=== PATIENT | female | born 1940 | race Caucasian/White ===

== ENCOUNTER 2019-01-19 09:25 | Emergency (ER) | payer MEDICARE ==
[2019-01-19] MEDS ORDERED: ISOVUE-370 76%-LOCM 1 ML ONE (10:09)
[2019-01-19 10:16] LABS: #Eosinphils 0.1 thou/uL (0.0-0.7); #Lymphocytes 0.9 thou/uL (1.20-3.40); #Monocytes 0.5 thou/uL (0.11-0.59); #Neutrophils 4.4 thou/uL (1.40-6.50); %Basophils 0.6 % (0.0-1.0); %Eosinophils 0.9 % (0.0-10.0); %Lymphocytes 15.9 % (21.0-51.0); %Monocytes 8.1 % (0.0-10.0); %Neutrophils 74.5 % (42.0-75.0); Hemoglobin 9.7 g/dL (12.0-16.0); Mean Corpuscular HGB CONC 30.6 g/dL (32.0-36.0); Mean Corpuscular Hemoglobin 20.6 pg (27.0-31.0); Mean Corpuscular Volume 67.3 fL (78.0-98.0); Mean Platelet Volume 8.4 fL (7.4-10.4); Platelet Count 440 thou/uL (130-400); RBC Distribution Width 17.3 % (11.5-14.5); Red Blood Cell (RBC) Count 4.72 mill/uL (4.20-5.40); White Blood Cell (WBC) Count 5.9 thou/uL (4.8-10.8)
[2019-01-19 10:42] LABS: ALT (SGPT) 20 U/L (8-55); AST (SGOT) 31 U/L (5-34); Albumin 3.8 g/dL (3.4-4.8); Alkaline Phosphatase 77 U/L (40-150); Anion Gap 12 mmol/L (10-20); BUN (Urea Nitrogen) 12 mg/dL (9.8-20.1); Bilirubin, Total 0.3 mg/dL (0.2-1.2); Calc. Creatinine Clearance 0 mL/min (70-130); Calcium 9.3 mg/dL (7.8-10.44); Carbon Dioxide 25 mmol/L (23-31); Chloride 103 mmol/L (98-107); Estimated GFR-MDRD Greater than 90; Glucose 98 mg/dL (83-110); Lipase 17 U/L (8-78); Potassium 4.3 mmol/L (3.5-5.1); Protein, Total 6.8 g/dL (6.0-8.3); Sodium 136 mmol/L (136-145)
[2019-01-19 10:43] LABS: Anisocytosis SLIGHT = 6-15 cells (100X) (0-5/hpf); Hypochromia SLIGHT = 6-15 cells (100X) (0-5/hpf); MDiff Complete? YES; Microcytosis SLIGHT = 6-15 cells (100X) (0-5/hpf); Platelet Morphology Comment Appears Increased
[2019-01-19 11:21] LABS: Bilirubin Negative (Negative); Blood, Urine Negative (Negative); Glucose, Urine (Dipstick) Negative (Negative); Leukocyte Negative (Negative); Nitrite Negative (Negative); Protein, Urine (Dipstick) Negative (Neg-Trace); Urobilinogen 0.2 mg/dL (Less than 2)
[2019-01-19 11:24] LABS: Clarity Clear (Clear); RBC/HPF None Seen HPF (0-3); Squamous Epithelial 0-3 HPF (0-3); WBC/HPF 0-3 HPF (0-3)
[2019-01-19 11:30] LABS: Bacteria/HPF None Seen HPF (None Seen)
--- NOTE | 2019-01-19 12:42 | ULT ---
GALLBLADDER ULTRASOUND: 01/19/19 HISTORY: Right upper quadrant pain. COMPARISON: None. TECHNIQUE: Utilizing a multihertz transducer, sonographic imaging of the right upper quadrant is performed in a longitudinal transverse plane. The head of the pancreas has a normal echotexture. The remainder of the pancreas is obscured by bowel gas. There is a right sided pleural effusion. In the hepatic dome, there is a 3.8 x 4.7 x 4.4 cm mixed echotexture mass which may represent a compl ex cystic lesion given areas of echogenicity along with posterior acoustic enhancement. Better interr ogation with CT is recommended. There may be a second complex cystic or solid lesion in the liver, di fficult to appreciate. There appears to be a cyst measuring 2.4 x 2.4 x 2.8 cm in the right hepatic l obe. Right kidney has a normal cortical echotexture. No hydronephrosis. Right kidney measures 6.0 x 7.3 x 11.0 cm. Gallbladder is contacted and cannot be further assessed. Questionable gallbladder wall polyps. Positi ve nonshadowing adherent stones cannot be excluded. Negative Swann's sign is reported. Suboptimal evaluation of the common bile duct. Main portal vein is patent. IMPRESSION: Multiple hepatic masses, worrisome for malignancy until proven otherwise. Further evaluation with [facility] mass protocol CT is recommended. Results of the study discussed with Dr. Bell, 01/19/19 at 12:24 p.m. Code CR POS: OFF
--- NOTE | 2019-01-19 17:48 | CT ---
CT ABDOMEN WITH AND WITHOUT IV CONTRAST CT PELVIS WITH IV CONTRAST 01/19/19 HISTORY: Abnormal right upper quadrant ultrasound examination demonstrating multiple hepatic masses, worrisome for malignancy. COMPARISON: Right upper quadrant ultrasound 01/19/19. FINDINGS: There is incomplete visualization of a moderate sized right pleural effusion with consolidation of th e right lung base which probably attributable to atelectasis or pneumonitis. There are a few small pl eural based nodular densities along the anterolateral right chest. There is enhancing ill-defined soft tissue density seen along the capsule of the liver and in the reg ion of the cardiophrenic angle which does result in mass effect on portions of the liver capsule and are suggestive of peritoneal carcinomatosis. Adjacent fluid is present. There are at least three cyst ic appearing masses within the right upper quadrant with small enhancing peripheral nodules which are also worrisome for metastatic disease, largest measuring 3.9 cm. These lesions also are likely along the capsule with resultant mass effect on the liver although could potentially be subcapsular. There are lobulated areas of enhancement within the anterior peritoneum of the lower abdomen/upper pe lvis as well as in the anterolateral aspect of the lower left pelvis and in the region of the cul-de- sac. Again findings are most suggestive of peritoneal carcinomatosis. Subcentimeter too small to characterize hypodense lesions are seen in the superior pole and mid port ion left kidney. The spleen, pancreas, bilateral adrenal glands, and right kidney as well as urinary bladder demonstra te a normal CT appearance. The uterus is not visualized probably related to prior hysterectomy. Dense vascular calcifications are seen in the abdominal aorta and involving the iliac arteries. There is question of mild gastric wall thickening in the region of the pylorus, this is likely attrib utable to incomplete distention. The opacified small bowel has a normal appearance. A moderate amount of retained fecal material is se en throughout the colon. No enlarged lymph nodes are seen. IMPRESSION: 1. Peritoneal carcinomatosis much more extensive along the capsule of the liver and near the do me of the liver adjacent to the cardiophrenic angle. Additional cystic metastatic lesions are seen wh ich are thought to be along the liver capsule with resultant mass effect on the liver versus subcapsu lar in origin. Exact origin of peritoneal carcinomatosis is difficult to discern. However, there is i rregular lobulated soft tissue density seen adjacent to the vaginal cuff in the left adnexal region w hich may be secondary to an adnexal lesion. 2. Moderate sized right pleural effusion with consolidation at the right lung base, some of whi ch probably is related to atelectasis. However, pneumonitis is also a possibility. 3. Pleural based nodular densities right lung base. Pleural based metastatic deposits cannot be entirely excluded. 4. Hysterectomy. 5. Too small to characterize hypodense lesions left kidney. 6. Degenerative change in the spine. No lytic or sclerotic osseous lesions are appreciated. Ther e is fusion of the left lateral mass of L5 with S1. 7. Above findings discussed with Dr. Bell in the Emergency Department on 01/19/19 at 1453 hours. POS: [facility]
== END 2019-01-19 16:40 | disposition home or self-care (01) ==
LOC: ERS 09:25
DX: C78.6 Secondary malignant neoplasm of retroperitoneum and peritoneum (principal); J90 Pleural effusion, not elsewhere classified; E78.5 Hyperlipidemia, unspecified; Z87.891 Personal history of nicotine dependence; Z79.899 Other long term (current) drug therapy
CPT/HCPCS: 36415; 72193; 74170; 76705; 80053; 81003; 83690; 85025; Q9966

== ENCOUNTER 2019-02-05 11:26 | Outpatient (CLI) | payer MEDICARE ==
--- NOTE | 2019-02-05 12:59 | RAD ---
XR Chest Pa Lat STANDARD HISTORY: Preoperative evaluation COMPARISON: None FINDINGS: There is a large right pleural effusion with mediastinal shift to the left. The heart size is normal. The aorta is tortuous. The left lung is clear. There are degenerative changes in the spine. IMPRESSION: Large right pleural effusion.
--- NOTE | 2019-02-09 22:41 | EKG ---
Test Reason : Blood Pressure : / mmHG Vent. Rate : 085 BPM Atrial Rate : 085 BPM P-R Int : 150 ms QRS Dur : 082 ms QT Int : 434 ms P-R-T Axes : 093 081 096 degrees QTc Int : 516 ms Normal sinus rhythm Nonspecific ST and T wave abnormality Prolonged QT Abnormal ECG No previous ECGs available Confirmed by Dolores COSBY ([id number]) on 02/09/2019 10:41:31 PM Referred By: OLAF Confirmed By:Dolores COSBY
== END 2019-02-05 11:27 | disposition home or self-care (01) ==
LOC: LABBT 11:26
PROVIDERS: ATTEND Specialist
DX: Z01.818 Encounter for other preprocedural examination (principal); C80.1 Malignant (primary) neoplasm, unspecified; C78.6 Secondary malignant neoplasm of retroperitoneum and peritoneum; J90 Pleural effusion, not elsewhere classified
CPT/HCPCS: 32554; 71045; 71046; 82945; 83605; 83615; 83880; 84157; 84484; 85060; 85610; 85730; 88112; 88305; 89051; 93005; 93010; J2001

== ENCOUNTER 2019-02-05 18:59 | Emergency (ER) | payer MEDICARE ==
[2019-02-05] MEDS ORDERED: Lidocaine 1% w/Epinephrine 1:100K 20 ML VIAL ONE (19:31)
[2019-02-05 19:50] LABS: #Lymphocytes 0.8 thou/uL (1.20-3.40); #Monocytes 0.7 thou/uL (0.11-0.59); #Neutrophils 8.5 thou/uL (1.40-6.50); %Basophils 0.4 % (0.0-1.0); %Eosinophils 0.1 % (0.0-10.0); %Lymphocytes 7.8 % (21.0-51.0); %Neutrophils 84.7 % (42.0-75.0); Hemoglobin 11.2 g/dL (12.0-16.0); Mean Corpuscular HGB CONC 30.7 g/dL (32.0-36.0); Mean Corpuscular Hemoglobin 20.3 pg (27.0-31.0); Mean Platelet Volume 8.2 fL (7.4-10.4); Platelet Count 677 thou/uL (130-400); RBC Distribution Width 18.4 % (11.5-14.5); Red Blood Cell (RBC) Count 5.53 mill/uL (4.20-5.40); White Blood Cell (WBC) Count 10.1 thou/uL (4.8-10.8)
[2019-02-05 19:57] LABS: INR-International Normal Ratio 1.1; PTT 29.2 SEC (22.9-36.1); Prothrombin Time 13.8 SEC (12.0-14.7)
--- NOTE | 2019-02-05 20:15 | RAD ---
RADIOGRAPH CHEST 1 VIEW: DATE: 02/05/2019 TIME: 8:00 PM HISTORY: 78-year-old female status post thoracentesis for right pleural effusion. COMPARISON: 02/05/2019 12:53 PM FINDINGS: There continues to be total opacification of the right hemithoracic cavity. There continues to be rig ht to left midline shift of the trachea, mediastinum, and heart, but this appears to have slightly improved. No pneumothorax is visible. The left lung is relatively clear. There is hyperinflation of t he left lung. IMPRESSION: 1) no interval change in the total opacification of the right hemithoracic cavity due to large right pleural effusion. 2) no pneumothorax. 3) slight interval apparent improvement in the shift of midline structures to the left.
[2019-02-05] MEDS ORDERED: Ibuprofen 200 MG TAB ONE (21:46)
[2019-02-05] MEDS ORDERED: HYDROcodone/Acetaminophen 5/325 mg Tablet ONE (21:46)
[2019-02-05 23:14] LABS: BF Color Yellow; Body Fluid Source Thoracentesis Fluid; Clarity Hazy (Clear); Tube # EDTA
[2019-02-05 23:16] LABS: WBC/NonHematic-Auto 287 /cumm
[2019-02-05 23:17] LABS: BF RBC Count - Manual 2428 /cumm
[2019-02-06 00:19] LABS: BF Segmented Neutrophils 14 %; Cell Count Non Hematic 30 %; Lymphocytes 56 %
--- NOTE | 2019-02-08 08:20 | CON ---
DATE OF CONSULTATION: 02/05/2019 SERVICE: Pulmonary Medicine. REASON FOR CONSULT: Pleural effusion. HISTORY OF PRESENT ILLNESS: The patient is a 78-year-old white female with past medical history significant for suspected ovarian cancer. She has carcinomatosis of the belly. Apparently, she had increasing pleural effusion and one week ago, she underwent a thoracentesis. At that point, 1.3 L were removed. She had some shortness of breath at that time, that got better when she had the fluid off. Either way, she had progressive increasing shortness of breath over the past week. She presented to the Emergency Department with acute hypoxic respiratory failure secondary to large pleural effusion. Chest x-ray showed a very large effusion under tension. There was shift to mediastinum in the contralateral direction. She denies any fevers or chills. She has not been sick otherwise. She has had a progressive increasing shortness of breath. She has yet to start chemotherapy. This is going to be initiated probably next week. PAST MEDICAL HISTORY: 1. 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 2. Dyslipidemia. 3. Malignant effusion. 4. Carcinomatosis of the peritoneal cavity. PAST SURGICAL HISTORY: 1. Right leg vein procedure. 2. Hysterectomy. 3. Thoracentesis x2. FAMILY HISTORY: Noncontributory. SOCIAL HISTORY: Negative for alcohol, tobacco, or illicit drug use currently. ALLERGIES: SULFA. MEDICATIONS: List of her home medications includes; 1. Simvastatin and levothyroxine. 2. She is also on multiple pain medications. REVIEW OF SYSTEMS: General, head, ears, eyes, nose, throat, cardiovascular, respiratory, GI, , musculoskeletal, neurologic, and skin are negative except as mentioned in the HPI. PHYSICAL EXAMINATION: VITAL SIGNS: Afebrile, pulse 86, respirations 14, and saturation 95% on room air after her thoracentesis. HEENT: Normocephalic and atraumatic. Sclerae white. Conjunctivae pink. Oral mucosa is moist without lesions. LUNGS: There are absent breath sounds on the right. There is good air entry on the left. No prolonged expiratory phase or wheezing is appreciated. HEART: Normal rate. Regular. ABDOMEN: Soft, nontender, and nondistended. Bowel sounds are positive. MUSCULOSKELETAL: No cyanosis or clubbing. No pitting in the bilateral lower extremities. NEUROLOGIC: Grossly nonfocal. LABORATORY DATA: WBC 10.1, hemoglobin 11.2, and platelets 677,000. INR 1.1. Basic metabolic profile and liver function studies are otherwise unremarkable. BNP 129 and troponin is below the assay limit of 0.01. Lactate 2.1. Body fluid analysis shows an LDH of 477, glucose 85, total protein 3.8, and lymphocyte count 56%. Pathology currently pending. IMAGING: Chest x-ray demonstrates efrain-opacification of the right lung. The effusion is under tension with a shift of the mediastinum to the contralateral side. Otherwise, there is no acute cardiopulmonary abnormality identified. ASSESSMENT: 1. Acute hypoxic respiratory failure. 2. Malignant pleural effusion. 3. Widely metastatic carcinoma, ovarian, suspected. DISCUSSION AND PLAN: I talked to Dr. Colorado about possibly doing a PleurX catheter tomorrow morning. Unfortunately, we did not have enough PleurX kits left. It would be Friday or Friday at the earliest before she could recover one of these. She only had 500 mL pulled off in the Emergency Department. With a small amount of fluid that was pulled off, she will have a rapid reaccumulation and will be unlikely to make it through the . I gave the option of putting her in the hospital, and waiting until Friday to get her PleurX versus going home after a larger tap. She would prefer to go home after a larger tap. We did a full volume thoracentesis. Afterwards, she was on room air and her saturations were quite good. We have her an appointment with Dr. Everette Colorado, in the outpatient setting early next week. Hopefully, she will be able to get a PleurX catheter in soon. Since we do not have any cytology here, I will send off a sample to verify that she does in fact have a malignant effusion. The LDH is elevated. It is a lymphocyte predominant fluid , so my suspicion is that we will be dealing with a malignant effusion. 70 minutes have been devoted to this patient in various activities. I personally reviewed all imaging studies and laboratory data noted within this document. For fifty percent of this time, I was interacting with the patient at the bedside or coordinating care with the care team. For the remainder of the time I was immediately available to the patient in the hospital unit. Job ID: [id number] MTDD
--- NOTE | 2019-02-08 10:59 | OP ---
DATE OF PROCEDURE: 02/05/2019 SERVICE: Pulmonary Medicine. PROCEDURE PERFORMED: Right-sided pleural drainage with catheter insertion under ultrasound guidance. CONSENT: Risks and benefits of the procedure were discussed with the patient at bedside. All questions were answered and alternative options explained. STAFF PHYSICIAN: Milton Roger MD MEDICATIONS USED: Lidocaine 1% without epinephrine, 8 mL. PREOPERATIVE DIAGNOSES: 1. Malignant pleural effusion. 2. Acute hypoxic respiratory failure. POSTPROCEDURE DIAGNOSES: 1. Malignant pleural effusion. 2. Acute hypoxic respiratory failure. DESCRIPTION OF PROCEDURE: Time-out was performed by the procedure team and patient. The patient was positively identified using name and date of . The procedure site was marked. Vital sign monitoring was accomplished by noninvasive hemodynamic monitoring, pulse oximetry, and telemetry. In the seated position, the right posterior hemothorax was examined using ultrasound probe. The diaphragm and pleural fluid were easily identified. The skin was prepped and draped in a sterile fashion and anesthetized with 1% lidocaine without epinephrine. A finder needle was inserted in the pleural space with return of minimally cloudy yellow fluid. Pleural drainage catheter was inserted in the same location, a total quantity of 1600 mL was withdrawn by syringe pump technique. A sample was sent for analysis. Evacuation of fluid was terminated because I arrived at -21 cm of water of pleural fluid pressure. The intact catheter was withdrawn on exhalation and a sterile dressing was applied. The patient had stable vitals throughout the entire procedure. Postprocedure ultrasound demonstrated at least a liter and a half still in the chest. ESTIMATED BLOOD LOSS: 1 mL. COMPLICATIONS: None. Job ID: [id number]
== END 2019-02-05 22:00 | disposition home or self-care (01) ==
LOC: ERS 18:59
DX: C80.1 Malignant (primary) neoplasm, unspecified (principal); J91.0 Malignant pleural effusion
CPT/HCPCS: 71045; 82945; 83605; 83615; 83880; 84157; 84484; 85060; 85610; 85730; 89051; 93005; J2001

== ENCOUNTER 2019-02-25 13:49 | Outpatient (CLI) | payer MEDICARE ==
--- NOTE | 2019-02-25 14:19 | RAD ---
TWO VIEW CHEST: INDICATION: Pleural fluid. COMPARISON: 02/15/2019. FINDINGS: There is a large right effusion with a right thoracostomy tube present. Left chest port is in place. No consolidation of the left lung. Cardiomediastinal silhouette remains enlarged, and partially ob scured. IMPRESSION: Persistent large right pleural effusion. Right thoracostomy tube remains in place. Prominent cardiomediastinal silhouette largely obscured by pleural-based density notably obscuring th e right hilum and paramediastinal region. Followup upon resolution recommended for complete evaluati on. POS: OFF
== END 2019-02-25 13:50 | disposition home or self-care (01) ==
LOC: RAD 13:49
PROVIDERS: ATTEND Thoracic Surgery (Cardiothoracic Vascular Surgery)
DX: J90 Pleural effusion, not elsewhere classified (principal)
CPT/HCPCS: 71046

== ENCOUNTER 2019-04-13 09:18 | Outpatient (CLI) | payer MEDICARE ==
--- NOTE | 2019-04-13 11:51 | CT ---
CT CHEST WITH CONTRAST: CT ABDOMEN WITH CONTRAST: CT PELVIS WITH CONTRAST: HISTORY: Metastatic ovarian cancer. Patient is undergoing chemotherapy. CORRELATION: None. COMPARISON: 01/19/2019 02/15/2019 FINDINGS: CHEST Mediastinum: Multiple upper normal mediastinal lymph nodes are noted. Mild fullness of the right hilu m with a right hilar lymph node measuring 0.9 cm in maximum dimension. Aorta: Normal caliber. There is atherosclerotic disease. No periaortic fat stranding. Heart: Normal heart size. No significant pericardial effusion. There are coronary artery calcificatio ns. Trachea and central bronchi: Patent Pleural spaces: Small right sided pleural effusion with loculated pleural fluid. Right sided PleurX c atheter is identified. Previously noted thickening of the right pleural margin has significantly decreased. Right lung: Consolidation involving the middle lobe, right lower lobe. Mild emphysematous changes in the upper lobes. Left lung:Mild emphysematous changes. Patchy interstitial opacities are nonspecific. There are 1 to 2 mm nodules in the superior segment of the left lower lobe. Additionally, there are two separate 2 to 3 mm pleural-based densities adjacent to the major fissure. Pneumothorax: None ABDOMEN Gallbladder: Unremarkable Portal vein: Patent Liver: Redemonstration of a well circumscribed hypodensity adjacent to the anterior segment of the ri ght hepatic lobe measuring 3.8 x 3.3 cm (previously measuring 3.8 x 4.2 cm). Post contrast images do demonstrate mild enhancement. Additional smaller hypodensities along the hepatic margin are redemo nstrated. A second lesion currently measures 1.3 x 1.1 cm (previously measuring 2.1 x 2.0 cm. There is a 1.8 x 2.3 cm along the posterior margin of the liver with a component of thick peripheral enhanc ement. Previously this lesion measured 2.5 x 2.0 cm. Spleen: Appropriate enhancement Pancreas: Appropriate enhancement Adrenal glands: Appropriate enhancement Lymphadenopathy: No gastrohepatic, retrocrural or periportal lymphadenopathy Kidneys: Stable hypodensities in the left renal cortex. Symmetric enhancement of the kidneys. Bilater ally no obstructive uropathy. Mesentery: Previously noted abnormal soft tissue attenuation the abdominal mesentery appears to have significantly decreased. There is a 1.4 x 1.2 cm soft tissue density in the anterior midline mesentery which may represent a small focus of peritoneal carcinomatosis. Alimentary canal: Gastric mucosa, duodenum and multiple normal caliber small bowel loops are identifi ed. Ileocecal junction is unremarkable. Appendix is difficult to appreciate. No obvious inflammation at the cecal apex. There is a copious amount fecal material throughout the colon. Correl ate for constipation. PELVIS Uterus: Surgically absent. No pelvic mass, lymphadenopathy, free air or free fluid. Osseous structures:Chronic changes. No lytic or blastic lesions. IMPRESSION: 1. Findings suggesting partial response to therapy. Decreased right sided pleural effusion and pleura l-based metastases. 2. Decreased peritoneal metastases. There is still evidence of a metastatic deposit as described in t he findings section of this report. Additionally, there are perihepatic metastatic deposits some of which have decreased in size. Transcribed Date/Time: 04/13/2019 12:12 PM
== END 2019-04-13 09:19 | disposition home or self-care (01) ==
LOC: BICCT 09:18
PROVIDERS: ATTEND Internal Medicine Hematology & Oncology
DX: C78.6 Secondary malignant neoplasm of retroperitoneum and peritoneum (principal); C56.9 Malignant neoplasm of unspecified ovary; J90 Pleural effusion, not elsewhere classified
CPT/HCPCS: 71260; 74177

== ENCOUNTER 2019-04-22 10:06 | Outpatient (CLI) | payer MEDICARE ==
--- NOTE | 2019-04-22 10:28 | RAD ---
2 VIEW CHEST: Date: 04/22/19 HISTORY: Dyspnea. COMPARISON: 02/25/[address] of 04/13/19. FINDINGS: Right-sided effusion with right basilar atelectasis again noted. Left lung remains clear. Heart is mi ldly prominent. MediPort catheter unchanged. IMPRESSION: Right-sided effusion and right basilar atelectasis again noted. POS: [facility]
== END 2019-04-22 10:07 | disposition home or self-care (01) ==
LOC: RAD 10:06
PROVIDERS: ATTEND Internal Medicine
DX: R06.00 Dyspnea, unspecified (principal); J98.11 Atelectasis; J90 Pleural effusion, not elsewhere classified
CPT/HCPCS: 71046

== ENCOUNTER 2019-05-07 05:55 | Day surgery (SDC) | payer MEDICARE ==
[2019-05-06 09:09] VITALS: BMI 20.5
[2019-05-07] MEDS ORDERED: Midazolam HCl 2 mg/2 ml Vial ONE (06:32)
[2019-05-07] MEDS ORDERED: Fentanyl 100 MCG/2 ML VIAL ONE (06:32)
[2019-05-07] MEDS ORDERED: Bupivacaine HCl 0.5%/Epinephrine 1:200,000/PF 30 ml Vial ONE (07:25)
--- NOTE | 2019-05-07 10:33 | CON ---
DATE OF CONSULTATION: HISTORY OF PRESENT ILLNESS: Ms. Long is being brought into the hospital today for removal of a right PleurX catheter that was placed for recurrent malignant effusion. The catheter stops draining. She has requested its removal. She is currently asymptomatic and presents today for removal. PAST MEDICAL HISTORY: Malignant right pleural effusion from metastatic probable ovarian cancer. PAST SURGICAL HISTORY: Right PleurX placement. MEDICATIONS: Noted. ALLERGIES: NONE. PHYSICAL EXAMINATION: GENERAL: This is a thin elderly woman, resting comfortably without shortness of breath. PleurX catheter is in her right chest. LUNGS: Clear bilaterally. HEART: Rhythm is regular. IMAGING: I have reviewed her most recent chest x-ray, which shows a small right residual pleural effusion at the base. ASSESSMENT AND PLAN: For PleurX removal under local. Job ID: [id number]
[2019-05-07] MEDS ORDERED: Lidocaine 1% PF 5 ML VIAL ONE (11:47)
[2019-05-07] MEDS ORDERED: PROPOFOL 200 MG/20 ML VIAL ONE (11:47)
--- NOTE | 2019-05-07 12:28 | OP ---
DATE OF PROCEDURE: 05/07/2019 PREOPERATIVE DIAGNOSIS: Nonfunctional right PleurX catheter. POSTOPERATIVE DIAGNOSIS: Nonfunctional right PleurX catheter. PROCEDURE PERFORMED: Removal of right PleurX catheter. ANESTHESIA: 0.5% Marcaine with IV sedation. ANESTHESIOLOGIST: Dr. Jarod Ramires. DESCRIPTION OF PROCEDURE: After consent was obtained, the patient was brought to the operating room, placed in supine position on the operating table. Appropriate central line and monitors were placed, and IV sedation begun. The area around the PleurX exit site was anesthetized with 0.5% Marcaine. The chest wall was prepped and draped in usual sterile fashion. The suture was removed, and dissection completed sharply to dissect the cuff. Catheter was removed, and a sterile dressing was applied. The patient tolerated the procedure well, was transferred to the Day Stay and home later today. Job ID: [id number]
== END 2019-05-07 08:10 | disposition home or self-care (01) ==
LOC: SDC 05:55
PROVIDERS: ATTEND Thoracic Surgery (Cardiothoracic Vascular Surgery)
PROC: 0WP9X0Z Removal of Drainage Device from Right Pleural Cavity, External Approach (ICD-10-PCS; principal; 2019-05-07)
DX: T85.698A Other mechanical complication of other specified internal prosthetic devices, implants and grafts, initial encounter (principal); C80.1 Malignant (primary) neoplasm, unspecified; J91.0 Malignant pleural effusion
CPT/HCPCS: J0670; J2001; J2250; J2704; J3010

== ENCOUNTER 2019-05-10 08:52 | Outpatient (CLI) | payer MEDICARE | END 2019-05-10 08:53 | disposition home or self-care (01) | LOC: CP 08:52 | PROVIDERS: ATTEND Internal Medicine | DX: J44.9 Chronic obstructive pulmonary disease, unspecified (principal) | CPT/HCPCS: 94060; 94727; 94729 ==

== ENCOUNTER 2019-07-05 08:10 | Outpatient (CLI) | payer MEDICARE ==
[2019-07-05 08:32] LABS: Estimated GFR-MDRD - POC Greater than 90
--- NOTE | 2019-07-05 10:50 | CT ---
CT CHEST AND ABDOMEN AND PELVIS: Date: 07/05/2019 COMPARISON: 04/13/2019. HISTORY: Ovarian cancer. TECHNIQUE: Axial CT imaging at 5 mm intervals from the thoracic inlet through the pubic symphysis with intraveno us and oral contrast. Coronal and sagittal reformatted imaging obtained. FINDINGS: Stable left-sided Port-A-Cath. Bilateral breast implants present. There is scattered atherosclerotic calcification of the aortic arch, the descending thoracic aorta, the proximal great vessels, and the coronal arteries. No axillary lymphadenopathy is noted. Multiple subcentimeter scattered mediastinal lymph nodes are again noted, which includes a right para tracheal node measuring approximately 8-9 mm in short axis dimension, stable. Stable subcentimeter ahmadi bcarinal node noted measuring in the 8-9 mm range. Stable 9.0 mm right hilar node. No new lymphadenop athy is seen. There is no pneumothorax noted on either side. Mild emphysematous changes are again noted in the lung apices. No discrete pulmonary parenchymal mass lesion or nodule is noted within the left lung. The chest tube present on the right on the prior exam has been removed. There is stable increased coarse linear density noted within the inferior and posterior right lower l obe, as well as the inferior posterior aspect of the right middle lobe. These coarse increased linear densities are stable when compared to the prior exam. There is small volume pleural fluid on the rig ht with mild pleural thickening within the right lung base, improved when compared to the prior exami [email or web address]. Review of the osseous structures of the chest appear stable. No discrete focal lytic or blastic lesio n is noted within the chest. There is no free intraperitoneal air or fluid seen. There are peripheral hypodense lesions associated with the liver, which includes a 2.0 cm lesion on a xial image 41, superiorly, stable, a 3.8 cm lesion within the right lobe anteriorly on image 49, stab le, a stable 1.6 cm lesion on image 47, and a lesion abutting the posterior aspect of the right lobe of the liver which measures up to 2.8 cm, not significantly changed. No new liver lesions are noted. The gallbladder, spleen, pancreas, adrenal glands, and kidneys appear grossly unremarkable. No evidence for bowel obstruction. Prominent stool seen within the colon. There is an 8 mm node adjacent to the gastric fundus on image 11, stable. There is small volume soft tissue density within the upper/superior aspect of the retroperitoneum at the axial level of the origin of the celiac axis, suggesting stable mild retroperitoneal lymphadenopa thy. No new lymphadenopathy is noted within the abdomen or pelvis. There is stable scattered atherosclerotic calcification of the abdominal aorta and its branches. Review of the osseous structures of the abdomen/pelvis demonstrate stable degenerative change of the lumbar spine. No worrisome lytic or blastic bone lesions. IMPRESSION: 1. Mildly prominent lymph nodes within the mediastinum are stable. Stable pleural thickening and sma ll volume pleural fluid within the right lung base. 2. Stable hypodense peripheral lesions abutting the liver within the right upper quadrant suggests s table peritoneal metastatic disease. 3. Stable small volume retroperitoneal lymphadenopathy. No new liver lesions. POS: [facility]
[2019-07-05] MEDS ORDERED: Iopamidol-370 76% 500 ML 1 ML ONE (14:54)
== END 2019-07-05 08:11 | disposition home or self-care (01) ==
LOC: BICCT 08:10
PROVIDERS: ATTEND Internal Medicine Hematology & Oncology
DX: C78.6 Secondary malignant neoplasm of retroperitoneum and peritoneum (principal); C56.9 Malignant neoplasm of unspecified ovary; R59.0 Localized enlarged lymph nodes; K76.9 Liver disease, unspecified; J92.9 Pleural plaque without asbestos; Z85.09 Personal history of malignant neoplasm of other digestive organs
CPT/HCPCS: 71260; 74177; 82565; Q9967

== ENCOUNTER 2019-08-24 09:35 | Outpatient (CLI) | payer MEDICARE ==
--- NOTE | 2019-08-24 13:28 | PET ---
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 COMPARISON: CT of the chest, abdomen and pelvis dated July 05, 2019 FINDINGS: Biodistribution:The biodistribution for the exam appears acceptable. Head and neck: There is appropriate background activity within the brain. No hypermetabolic lymphaden opathy or masses identified. Thorax: There are multiple hypermetabolic lymph nodes within the right axillary region. The largest m easures 1.7 cm on image 61 of series 3. The peak SUV activity associated with this lymph node is 13.78 with a mean activity of 7.7. There is a subpectoral lymph node on the right that also demonstra madeline hypermetabolic uptake. There is a hypermetabolic left axillary lymph node. There are hypermetabolic lymph nodes seen within the AP window, right paratracheal region, right hilar and rig ht subcarinal region as well as within the anterior mediastinum. There is a suspected hypermetabolic lymph nodes seen within the right paravertebral space, adjacent to the T11 vertebral b delfina. There is a small right pleural effusion without manuela hypermetabolic uptake. There is scattered emphysema. Abdomen and pelvis: There is expected background activity within the GI and systems.There are prom inent hypermetabolic lymph nodes seen within the lower paraesophageal region and gastrohepatic region. Prominent lymph nodes seen within the gastrohepatic region measures 2.2 cm in size with a pea k SUV uptake of 7.94 and a mean uptake of 7.9. There are hypermetabolic lymph nodes seen within the periportal region. There are hypermetabolic lymph nodes within the aortocaval and periaortic region a s well as along both common iliac vasculature. There is tubular hypermetabolic activity adjacent to the left internal iliac artery likely related to urinary activity within the distal left ureter. The subcapsular fluid collections overlying the right hepatic lobe demonstrate no associated hypermetabolic uptake; however, there is a region of intraparenchymal hypermetabolic activity involvi ng segment 6 of the right hepatic lobe with an ill-defined subcapsular hypodensity measuring 1.24 cm. The mean uptake associated with this lesion is 8.55 with a max uptake of 9.39. Additional focus o f hypermetabolic activity is seen adjacent to the subcapsular collection of the right hepatic lobe tip in the region of segment 6 with a mean activity of 4.65 and a peak activity of 4.65. There is a h ypermetabolic soft tissue mass seen within the region of the cul-de-sac suspicious for peritoneal carcinomatosis with a peak activity of 7.75. Osseous structures and skin: No hypermetabolic skin or osseous lesion is identified. IMPRESSION: Abnormal PET/CT 1. Abnormal hypermetabolic lymph nodes within the thorax, abdomen and pelvis consistent with worsenin g malignant lymphadenopathy. 2. Hypermetabolic soft tissue density seen within the region of the cul-de-sac is suspicious for wors ening peritoneal carcinomatosis. 3. Hypermetabolic right hepatic lobe liver lesions suspicious for hepatic metastatic disease. 4. Right-sided pleural effusion demonstrates no associated hypermetabolic uptake. Small subcapsular c ollections overlying the right hepatic lobe demonstrate no associated hypermetabolic uptake. Transcribed Date/Time: 08/24/2019 1:42 PM
== END 2019-08-24 09:36 | disposition home or self-care (01) ==
LOC: PET 09:35
PROVIDERS: ATTEND Internal Medicine Hematology & Oncology
DX: C56.9 Malignant neoplasm of unspecified ovary (principal); C78.6 Secondary malignant neoplasm of retroperitoneum and peritoneum; K76.9 Liver disease, unspecified; J90 Pleural effusion, not elsewhere classified; R93.89 Abnormal findings on diagnostic imaging of other specified body structures
CPT/HCPCS: 78815; A9552

== ENCOUNTER 2019-10-22 07:57 | Outpatient (CLI) | payer MEDICARE ==
--- NOTE | 2019-10-22 10:07 | PET ---
PET SCAN WITH CT ATTENUATION CORRECTION: HISTORY: Metastatic ovarian neoplasm. Patient has undergone chemotherapy. COMPARISON: 08/24/2019. TECHNIQUE: PET scan with CT attenuation correction was performed from the base of the brain to the proximal thig hs following the intravenous administration of 10.9 mCi of [id number]. Head and neck: No abnormal FDG localization. Chest: Redemonstration of FDG avidity involving the right axilla. CT used for attenuation correction demonstrates interval decrease in size of the right axillary lymph nodes. There is persistent FDG avidity though it has significantly decreased since the previous examination. Currently, the maximum SUV is 2 which is within normal limits. Previously noted FDG avidity on the right intramammary lymph node and left axilla are no longer present. There is persistent FDG avidity involving a right p aratracheal lymph node with a maximum SUV of 2.9, previously with a maximum SUV of 5.3. Previously noted FDG avidity in the subcarinal region and right hilum are no longer evident. No new areas of abn ormal FDG localization in the thorax. CT used for attenuation correction demonstrates chronic changes in the right lung due to scar or atel ectasis. No evidence of suspicious lung nodules. Abdomen and pelvis: Expected distribution of radiotracer. Stable photopenic focus in the anterior rig ht hepatic lobe suggesting a cyst. Previously noted hypermetabolic focus in the right hepatic lobe does not have any FDG avidity. There is a stable nonhypermetabolic focus in the posterior segment of the right hepatic lobe likely representing a second hepatic cyst. There is improved FDG avidity in the portal confluence and epigastric region. The degree of FDG avidi ty has decreased. There is still a hypermetabolic focus with a maximum SUV of 4.2. Previously, the overall number of hypermetabolic lesions in this region was significantly more. Forger Helper FDG av idity at that time was 8.4. Previously noted periaortic, aortocaval hypermetabolic activity as well as hypermetabolic activity along both iliac chains has essentially resolved. There does not appear to be any significant abnormal FDG localization along the left and right lateral wall of the pelvis. Previously noted FDG avidity in the cul-de-sac does remain with a current maximum SUV be of 5.0, prev iously 7.5. No new areas of abnormal FDG localization in the pelvis. Osseous structures: No abnormal FDG localization. IMPRESSION: Evidence for response to therapy. There is overall improvement in the degree of metastases. Areas of residual metastases do remain in the chest, and abdomen. Additional fluorodeoxyglucose localization the pelvis is noted which may represent a focus of improving peritoneal carcinomatosis. Transcribed Date/Time: 10/22/2019 12:37 PM
== END 2019-10-22 07:58 | disposition home or self-care (01) ==
LOC: PET 07:57
PROVIDERS: ATTEND Internal Medicine Hematology & Oncology
DX: C56.9 Malignant neoplasm of unspecified ovary (principal); C78.6 Secondary malignant neoplasm of retroperitoneum and peritoneum; C79.89 Secondary malignant neoplasm of other specified sites
CPT/HCPCS: 78815; A9552

== ENCOUNTER 2020-01-14 07:34 | Outpatient (CLI) | payer MEDICARE ==
--- NOTE | 2020-01-14 10:04 | PET ---
Nuclear medicine FDG PET/CT: (Positron emission tomography and computed tomography) DATE: 01/14/2020 HISTORY: 79-year-old female with metastatic ovarian cancer. Evaluate response to treatment. COMPARISON: 10/22/2019 TECHNIQUE: IV injection of F-18 fluorodeoxyglucose (FDG) dose: 12.1 mCi. PET scan and attenuation correction CT performed from skull base to proximal thighs. FINDINGS: SUV (standard uptake values) numbers given are maximum SUVs. QCLR used. Neck: No malignant cervical lymphadenopathy or other abnormal focus of increased FDG uptake. CHEST: Previously hypermetabolic right axillary lymph node no longer hypermetabolic, and now smaller. However, whereas previously there were only a few hypermetabolic mediastinal lymph nodes, there are n ow many new such lymphadenopathy. The following are some examples: Right upper paratracheal: Current SUV 8.9. Previously SUV 3.6. Worsening. Left internal mammary: Currently SUV 2.3. Previous SUV 2.6. Slight improvement. Right mid paratracheal posterior to SVC as grown to 0.9 x 0.9 cm. Current SUV 6.9. Previous SUV 2.3. Left lateral paratracheal current SUV 3.6. Previous SUV 3.3. Right subcarinal: Current SUV 4.3. Previously not hypermetabolic. There is new bilateral hilar hypermetabolic activity: Right upper hilum: Current SUV 6.9. Previously not hypermetabolic. Right lower hilum: Current SUV 8.0. Previously not hypermetabolic. Left hilum: Current SUV 4.6. Previously not hypermetabolic. No evidence of pulmonary metastasis. ABDOMEN: New hypermetabolic focus at region of body of pancreas current SUV 4.6. Previously not hypermetabolic . Uncertain whether within or outside of pancreas. Subtle faint focus of activity at (STEFFANY of celiac node, current SUV 3.0. Previous SUV 5.1, improved. Slightly inferior to that, focus of current SUV 3.3. Previous SUV 3.1. Slight interval worsening. Ill-defined region of hypermetabolic activity at central mesentery. Current SUV of 5.5, 0.2. Previous SUV approximately 4.9. Worsening. Discrete small focus of hypermetabolic activity in left anterolateral midabdomen peritoneal cavity cu rrent SUV 7.4. Previous SUV 4.3, worse. Retroperitoneal adenopathy at aortic bifurcation current SUV 5.9. This SUV 3.8. Worsening. Previously, a focus of increased uptake in the region of the left common iliac bifurcation with SUV o f 16.0, currently not hypermetabolic. It is uncertain whether this was a lymph node or activity of urine within the left ureter. Similar finding more inferiorly in the left pelvis. Ureter is favored. Small 1 cm focal soft tissue d ensity nodule at right posterior pelvic cavity current SUV 5.7. Previous SUV 3.6, worse. Slightly to the left of that, another focus of increased uptake current SUV 4.7. Previous SUV 6.9, im proved. Because of lack of visceral fat, many of the hypermetabolic foci described above in the abdominal cav ity and pelvic cavity, are difficult to visualize on the nondiagnostic, noncontrast CT images. IMPRESSION: Mixed response to therapy. Although some of the lesions have improved, there has been worsening of ma ny, for overall worsening. This includes overall worsening of mediastinal lymphadenopathy, bilateral hilar lymphadenopathy, and upper abdominal and lower retroperitoneal lymphadenopathy.
== END 2020-01-14 07:35 | disposition home or self-care (01) ==
LOC: PET 07:34
PROVIDERS: ATTEND Internal Medicine Hematology & Oncology
DX: C56.9 Malignant neoplasm of unspecified ovary (principal); R59.0 Localized enlarged lymph nodes
CPT/HCPCS: 78815; A9552

== ENCOUNTER 2020-03-30 08:58 | Outpatient (CLI) | payer MEDICARE ==
--- NOTE | 2020-03-30 11:00 | PET ---
EXAM: PET/CT HISTORY: History of malignant neoplasm of the colon and ovarian carcinoma TECHNIQUE: PET scanning with CT attenuation correction was performed from the base of the brain to the proximal thighs following the intravenous administration of 10.4 millicuries [id number]. COMPARISON: Prior PET/CT dated January 14, 2020 FINDINGS: Biodistribution:The biodistribution for the exam appears acceptable. Head and neck: There is appropriate background activity within the brain. There has interval developm ent of a posterior left cervical hypermetabolic lymph node with a peak SUV value of 4.04 and a mean value of 2.54. There is been interval development of bilateral hypermetabolic supraclavicular lymph n odes with a peak SUV activity on the left of 3.89 and a mean activity 2.24. Thorax: Hypermetabolic upper right paratracheal lymph node demonstrates decreased hypermetabolic upta ke. The peak SUV value is 5.3 with a mean value of 4.64, where previously, the peak activity was 8.91 and a mean value was 6.37. Lower right paratracheal lymph node demonstrates decreased hypermetab olic uptake with a peak value of 4.72 cm and a mean activity of 3.86. Previously, the peak value was 6.86 and mean value was 5.16. There has been resolution of the hypermetabolic subcarinal and fausto r lymph nodes. There is some mild increase in metabolic uptake seen within these regions. There is scattered emphysema. There are areas of subsegmental volume loss involving the right lung base. No de finite hypermetabolic pulmonary nodule or pleural effusion is evident. There is a new left axillary lymph node demonstrating increased metabolic uptake with a peak value of 192D and mean value of 1.55. Abdomen and pelvis: There is expected background activity within the GI and systems.The hypermetab olic upper periportal lymph node demonstrates increased hypermetabolic uptake with a peak SUV value of 6.11 and a mean value of 5.33. Previously the peak time was 3.03 and mean value of 2.57. The perip ancreatic lymph node demonstrates a mean activity of 4.59 and a peak activity of 4.96 which is stable to the prior exam. There is a new hypermetabolic left adrenal nodule measuring a peak activity of 5.08 and a mean activity of 4.5. The ill-defined hypermetabolic uptake seen involving the central mesenteric base has a peak activity of 4.67 and mean activity of 4.25 where previously the pe ak activity was 5.07 and a mean activity of 4.35. The peritoneal nodular focus has a peak activity of 6.85 where as previously the peak activity was 7.84. Osseous structures and skin: There is new diffuse increased metabolic uptake involving the marrow spa ce of the axial and appendicular skeleton. There are foci of new hypermetabolic uptake involving the right ischial tuberosity with a peak activity of 6.09. There is a new hypermetabolic focus within the left aspect of S1 vertebral body with a peak activity of 4.93. There are multiple new foci of activity within the manubrium and sternum with a traffic representative peak activity of 3.64. There are hype rmetabolic foci within the left first, left fifth and sixth ribs suspicious for new metastatic lesions. The left first rib lesion has a peak activity of 4.16. There is a focus of increased activit y involving the posterior left scapular body with a peak activity 2.53. There is an L1 spinous process lesion with a peak activity 2.48. There is new right humeral head lesion with a peak activity of 8.69 mean activity of 6.7. IMPRESSION: Abnormal PET/CT. Overall worsening metastatic disease. There is some improvement in the hypermetabolic uptake involvin g the mediastinal and some of the central mesenteric abdominal lymphadenopathy. However, there are multiple new hypermetabolic lymph nodes within the lower neck, supraclavicular region and left axilla . There are also some lymph nodes within the abdomen that demonstrate increased hypermetabolic uptake. There is new hypermetabolic osseous metastatic disease.
== END 2020-03-30 08:59 | disposition home or self-care (01) ==
LOC: PET 08:58
PROVIDERS: ATTEND Internal Medicine Hematology & Oncology
DX: C78.6 Secondary malignant neoplasm of retroperitoneum and peritoneum (principal); C18.2 Malignant neoplasm of ascending colon; R93.3 Abnormal findings on diagnostic imaging of other parts of digestive tract; C79.51 Secondary malignant neoplasm of bone
CPT/HCPCS: 78815; A9552

== ENCOUNTER 2020-04-11 21:25 | Inpatient (IN) | payer MEDICARE, OTHER ==
[2020-04-11 22:22] LABS: INR-International Normal Ratio 2.1; Prothrombin Time 24.4 sec (12.0-14.7)
--- NOTE | 2020-04-11 22:23 | RAD ---
Chest AP view INDICATION: Altered mental status with increased abdominal pain and history of colon cancer COMPARISON: Prior chest radiograph dated April 22, 2019 FINDINGS: Lungs: There is persistent volume loss versus scarring within the right lung base. There is hazy air space opacity involving midlung and both lower lobes. Cardiac silhouette: There is stable mild cardiomegaly. There is a stable left chest wall port in pattie ce. Pulmonary vasculature: Normal Pleural spaces: Small right-sided pleural effusion remains. Upper abdomen: There is contrast seen within the renal collecting systems correspond to the patient' s recent CT the abdomen performed earlier today. Osseous structures: Chronic osseous changes appear similar. Additional findings: None. IMPRESSION: Bilateral hazy airspace opacities nonspecific but is suspicious for possible developing pneumonia. Re commend correlation with clinical exam and continued radiographic follow-up. Persistent areas of subsegmental volume loss with a small right pleural effusion. Stable mild cardiomegaly.
[2020-04-11 22:27] LABS: #Eosinphils 0.1 thou/uL (0.0-0.7); #Monocytes 0.7 thou/uL (0.11-0.59); #Neutrophils 9.3 thou/uL (1.40-6.50); %Basophils 0.1 % (0.0-1.0); %Eosinophils 0.6 % (0.0-10.0); %Lymphocytes 9.3 % (21.0-51.0); %Monocytes 6.6 % (0.0-10.0); %Neutrophils 83.5 % (42.0-75.0); Hemoglobin 12.8 g/dL (12.0-16.0); Mean Corpuscular Hemoglobin 30.9 pg (27.0-31.0); Mean Corpuscular Volume 96.4 fL (78.0-98.0); Mean Platelet Volume 8.3 fL (7.4-10.4); Platelet Count 284 thou/uL (130-400); Red Blood Cell (RBC) Count 4.15 mill/uL (4.20-5.40); White Blood Cell (WBC) Count 11.1 thou/uL (4.8-10.8)
[2020-04-11 22:39] LABS: ALT (SGPT) 209 U/L (8-55); AST (SGOT) 294 U/L (5-34); Albumin 3.5 g/dL (3.4-4.8); Alkaline Phosphatase 1466 U/L (40-110); Anion Gap 15 mmol/L (10-20); BUN (Urea Nitrogen) 9 mg/dL (9.8-20.1); Bilirubin, Total 12.3 mg/dL (0.2-1.2); Calc. Creatinine Clearance 0 mL/min (70-130); Calcium 8.7 mg/dL (7.8-10.44); Carbon Dioxide 21 mmol/L (23-31); Chloride 101 mmol/L (98-107); Estimated GFR-MDRD Greater than 90; Globulin 3.2 g/dL (2.4-3.5); Glucose 109 mg/dL (83-110); Lipase 164 U/L (8-78); Protein, Total 6.7 g/dL (6.0-8.3); Sodium 134 mmol/L (136-145)
[2020-04-11 22:43] LABS: Potassium 2.8 mmol/L (3.5-5.1)
[2020-04-11] MEDS ORDERED: Potassium Chloride 20 MEQ TAB ONE (22:59)
[2020-04-11] MEDS ORDERED: cefTRIAXone\\ROCEPHIN 1 GM VIAL ONE (23:05)
[2020-04-11 23:37] LABS: PTT 41.2 sec (22.9-36.1)
[2020-04-11] MEDS ORDERED: Azithromycin 500 MG VIAL ONE (23:40)
[2020-04-12] MEDS ORDERED: Morphine 4 MG/ML VIAL SLOW IVP PRN (00:20)
[2020-04-12] MEDS ORDERED: Ondansetron ODT 4 MG TAB SL PRN ×2 (00:30→15:24)
[2020-04-12] MEDS ORDERED: Ondansetron PF 4 MG/2 ML Vial IVP PRN ×2 (00:30→15:24)
[2020-04-12] MEDS ORDERED: Acetaminophen 325 MG TAB PO PRN ×2 (00:30→15:23)
[2020-04-12 00:50] VITALS: BMI 20.4
--- NOTE | 2020-04-12 03:59 | PDOC.HHP ---
Hospitalist HPI - History of Present Illness History of Present Illness: Patient presents to the ED after she was referred by Dr. Stock with plans to have her undergo an ERCP on , according to the patient and her granddaughter. She had a CT abdomen done on 06/11/20 that showed a mass of intrahepatic and extrahepatic biliary dilatation with marked distention and hydrops of the gallbladder. Concerning for pancreatic head mass causing this obstruction vs. metastatic adenopathy vs. ampullary mass. Based on these findings she was instructed to come to the ED. She has a known history of metastatic colon cancer and has been undergoing treatment at [facility]. Recent PET scan was done on 03/30/2020 showing overal worsening in metastatic disease, when compared to 12/2019, with some improved FDG uptake involving the mediastinal and some of the central mesenteric abdominal lymphadenopathy. She was however noted to have multiple new FDG avid lymph nodes in the lower neck, supraclavicular and left axillary regions. Abdominal lymph nodes had increased uptake compared to previously and also noted were new hypermetabolic bone mets. ROS: She apparently has had some episodes of confusion intermittently since the weekend. No fevers or chills. No headaches or dizziness. Has not had any slurred speech or vision changes. She is hard of hearing at baseline. She has had some abdominal discomfort which she states is mild and reports feeling constipated. Unclear when her last bowel movement was due to her confusion. She has been passing a lot of gas and denies any vomiting. The nausea she usually experiences in associated with chemo, has been well-controlled with Zo arcelia. She has been tolerating oral intake. Reports darkening of her urine but otherwise no dysuria, hematuria or incontinence. At baseline she has shortness of breath with exertion that is mild but denies any chest pain. Denies any recent cough. All other review of systems are negative. ED COURSE: EKG showed NSR with HR of 81. No ST changes. Labs notable for a WCC 11.1, Hgb 12.8, Hct 40, Platelets 284. Neutrophils 83.5%. Na+ 134, K+ 2.8, BUN 9, Creat 0.53, GFR >90. Carbon dioxide 21, AG 15. Glucose 109, Calcium 8.7, Total bili 12.3. AST 294, ALT 209, Alk phos 1,466, Albumin 3.5, Ammonia 67. CXR: Bilateral hazy airspace opacities nonspecific but is suspicious for possible developing pneumonia. Recommend correlation with clinical exam and continued radiographic follow-up. Persistent areas of subsegmental volume loss with a small right pleural effusion. Stable mild cardiomegaly. Started on IV antibiotics with Azithromycin and Rocephin in the ED. Also given 40mEq IV potassium chloride. PAST MEDICAL HISTORY: 1. Metastatic colon cancer. 2. Hypothyroidism. 3. Hyperlipidemia. 4. GERD. PAST SURGICAL HISTORY: 1. Vein procedure to right leg. 2. Hysterectomy. 3. Pleural X catheter, placed/removed, associated with malignant pleural effusions. 4. Port placement. 5. Groin lymph node biopsy, indicated GI origin malignancy. SOCIAL HISTORY: She has a history of tobacco use but quit more than 10 years ago. Denies any alcohol consumption or drug use. FAMILY HISTORY: Noncontributory. ALLERGIES: SULFA CURRENT MEDICATIONS: 1. Potassium chloride. 2. Oxycodone. 3. Ondansetron. 4. Lisinopril. 5. Morphine Sulfate ER. 6. Levothyroxine. 7. Omeprazole. 8. Sertraline. - Exam General Appearance: NAD, awake alert General - other findings: Temp 97.2, HR 83, RR 20, O2 sat 93% on RA, BP 160/75. Eye: PERRL, anicteric sclera ENT: normocephalic atraumatic, no oropharyngeal lesions Neck: supple, symmetric, no lymphadenopathy Heart: RRR, no murmur, no gallops, no rubs, normal peripheral pulses Respiratory: no wheezes, normal chest expansion, no tachypnea, rales (at bilateral bases) Gastrointestinal: no guarding, tender to palpation (mild discomfort with pal pation), distended (slight distention/firm, decreased bowel sounds), diminished bowl sounds Extremities: no edema Skin: no lesions, no rashes Neurological: cranial nerve grossly intact, normal sensation to touch Neurological - other findings: hard of hearing, uses hearing aids Musculoskeletal: normal tone, normal strength, no muscle wasting Psychiatric: normal affect, normal behavior, A&O x 3 Hospitalist Results - Labs Result Diagrams: 04/11/20 21:51 04/11/20 21:51 Lab results: WBC 11.1 thou/uL (4.8-10.8) H 04/11/20 21:51 Hgb 12.8 g/dL (12.0-16.0) 04/11/20 21:51 Hct 40.0 % (36.0-47.0) 04/11/20 21:51 MCV 96.4 fL (78.0-98.0) 04/11/20 21:51 Plt Count 284 thou/uL (130-400) 04/11/20 21:51 Neutrophils % 83.5 % (42.0-75.0) H 04/11/20 21:51 Sodium 134 mmol/L (136-145) L 04/11/20 21:51 Potassium 2.8 mmol/L (3.5-5.1) L* 04/11/20 21:51 Chloride 101 mmol/L (98-107) 04/11/20 21:51 Carbon Dioxide 21 mmol/L (23-31) L 04/11/20 21:51 BUN 9 mg/dL (9.8-20.1) L 04/11/20 21:51 Creatinine 0.53 mg/dL (0.6-1.1) L 04/11/20 21:51 Glucose 109 mg/dL (83-110) 04/11/20 21:51 Calcium 8.7 mg/dL (7.8-10.44) 04/11/20 21:51 Total Bilirubin 12.3 mg/dL (0.2-1.2) H 04/11/20 21:51 AST 294 U/L (5-34) H 04/11/20 21:51 ALT 209 U/L (8-55) H 04/11/20 21:51 Alkaline Phosphatase 1466 U/L (40-110) H 04/11/20 21:51 Ammonia 67 umol/L (18-72) 04/11/20 21:58 Serum Total Protein 6.7 g/dL (6.0-8.3) 04/11/20 21:51 Albumin 3.5 g/dL (3.4-4.8) 04/11/20 21:51 Lipase 164 U/L (8-78) H 04/11/20 21:51 Hospitalist H&P A/P - Problem (1) Hyperbilirubinemia Code(s): E80.6 - OTHER DISORDERS OF BILIRUBIN METABOLISM Status: Acute Assessment and Plan: Secondary to liver metastatic. Continue to monitor LFTs. Add-on direct bilirubin to labs. Consult GI for ERCP NPO until GI evaluation. (2) Abdominal discomfort Code(s): R10.9 - UNSPECIFIED ABDOMINAL PAIN Status: Acute Assessment and Plan: Mild and tolerable. No n/v, passing gas. Tolerating PO intake. Simethicone and Dulcolax TN. Consider KUB if no improvement/symptoms worsen. Gentle hydration. Walking program to help with GI motility. (3) SOB (shortness of breath) on exertion Code(s): R06.02 - SHORTNESS OF BREATH Status: Acute Assessment and Plan: Hx of malignant pleural effusions. CXR showed changes concerning for pneumonia. Will check lactic acid and procalcitonin. WCC mildly elevated. Continue IV antibiotics. Obtain d-dimer, given history of malignancy. If negative, CT Chest without contrast to better assess for possible pneumonia, underlying lung pathology given SOB and crackles on exam. If elevated, obtain CTA to rule out PE, plus above. Monitor O2 sats. (4) Hypokalemia Code(s): E87.6 - HYPOKALEMIA Status: Acute Assessment and Plan: Replaced in ED. Continue replacement and monitor electrolytes. Check Mg+ (5) Constipation Code(s): K59.00 - CONSTIPATION, UNSPECIFIED Status: Chronic Assessment and Plan: As mentioned above, will give stool softeners. Gentle hydration. Hold Zofran, as not currently nauseated and does contribute to constipation. (6) Hypothyroidism Code(s): E03.9 - HYPOTHYROIDISM, UNSPECIFIED Status: Chronic Assessment and Plan: Check TSH. Resume Levothyroxine. (7) GERD (gastroesophageal reflux disease) Code(s): K21.9 - GASTRO-ESOPHAGEAL REFLUX DISEASE WITHOUT ESOPHAGITIS Status: Chronic Assessment and Plan: Famotidine 20 mg PO BID. (8) Metastatic adenocarcinoma Code(s): C79.9 - SECONDARY MALIGNANT NEOPLASM OF UNSPECIFIED SITE Status: Chronic (9) Hyperlipidemia Code(s): E78.5 - HYPERLIPIDEMIA, UNSPECIFIED Status: Chronic Assessment and Plan: Resume home meds once verified. - Plan Plan: Surrogate decision maker: Penny Zelaya. PCP: Dr. Castaneda.
[2020-04-12] MEDS ORDERED: Bisacodyl 10 MG SUPP PR PRN (04:17)
[2020-04-12] MEDS ORDERED: Simethicone Chewable 80 MG TAB PO PRN (04:21)
[2020-04-12] MEDS ORDERED: Morphine 2 MG/ML VIAL SLOW IVP PRN ×2 (04:23→15:24)
[2020-04-12] MEDS ORDERED: Electrolyte Replacement Protoc 1 EACH EACH FS SCH (04:30)
[2020-04-12 05:01] LABS: #Basophils 0.1 thou/uL (0.0-0.2); #Eosinphils 0.1 thou/uL (0.0-0.7); #Lymphocytes 1.1 thou/uL (1.20-3.40); #Neutrophils 11.3 thou/uL (1.40-6.50); %Basophils 0.4 % (0.0-1.0); %Eosinophils 0.5 % (0.0-10.0); %Lymphocytes 8.3 % (21.0-51.0); %Monocytes 7.2 % (0.0-10.0); %Neutrophils 83.7 % (42.0-75.0); Hemoglobin 13.1 g/dL (12.0-16.0); Mean Corpuscular Hemoglobin 31.7 pg (27.0-31.0); Mean Corpuscular Volume 95.9 fL (78.0-98.0); Mean Platelet Volume 8.4 fL (7.4-10.4); Platelet Count 266 thou/uL (130-400); Red Blood Cell (RBC) Count 4.14 mill/uL (4.20-5.40); White Blood Cell (WBC) Count 13.5 thou/uL (4.8-10.8)
[2020-04-12 05:15] LABS: Anion Gap 16 mmol/L (10-20); BUN (Urea Nitrogen) 9 mg/dL (9.8-20.1); Bilirubin, Direct 6.9 mg/dL (0.1-0.3); Calc. Creatinine Clearance 78 mL/min (70-130); Calcium 8.7 mg/dL (7.8-10.44); Carbon Dioxide 19 mmol/L (23-31); Chloride 101 mmol/L (98-107); Estimated GFR-MDRD Greater than 90; Glucose 96 mg/dL (83-110); Potassium 4.2 mmol/L (3.5-5.1); Sodium 132 mmol/L (136-145)
[2020-04-12] MEDS ORDERED: Magnesium 2 GM/50 ML 2 GM in Premix Bag 1 BAG IVPB SCH (06:30)
[2020-04-12] MEDS: Levothyroxine 150 MCG TAB PO SCH (06:36)
[2020-04-12] MEDS ORDERED: FLU VACC QS2020-21(65YR UP)/PF 240 MCG/0.7 ML SYRINGE IM ONE (09:00)
[2020-04-12] MEDS: Lisinopril 10 MG TAB PO SCH (09:23)
[2020-04-12] MEDS: Polyethylene Glycol 3350 17 GM Packet PO SCH (09:31)
[2020-04-12 11:15] LABS: SARS-CoV-2 MS2 Positive; SARS-CoV-2 N Gene Negative; SARS-CoV-2 S Gene Negative; SARS-CoV-2 by NAA Not Detected (NotDetected); SARS-CoV-2 orf1ab Negative
--- NOTE | 2020-04-12 15:27 | CON ---
DATE OF CONSULTATION: 04/12/2020 REASON FOR CONSULTATION: Severe jaundice. HISTORY OF PRESENT ILLNESS: Ms. Long is a 79-year-old female with peritoneal carcinomatosis with lymph node biopsy at [facility] suggestive of a GI primary. She also has right malignant pleural effusion that has since resolved. The patient has been treated with FOLFOX regimen with evidence of progression of disease. CT performed yesterday showed massive intrahepatic and extrahepatic biliary dilatation with gallbladder hydrops and a possible pancreatic head mass versus justin hepatis adenopathy. Clinically, the patient was noted to be jaundiced when she visited Dr. Azul last week. However, her urine has been dark for over 3 weeks. She does have chronic abdominal pain. She has constant nausea without any actual vomiting. Her appetite has been poor. The patient was admitted for obstructive jaundice with plan for ERCP with biliary stent to decompress her bile duct. She did have a normal upper endoscopy and colonoscopy in 01/2019. PAST MEDICAL HISTORY: 1. Metastatic and peritoneal carcinomatosis of unknown primary, biopsy of lymph node is suggestive of a GI primary. Has been on FOLFOX chemotherapy. 2. Hypothyroidism. 3. Hyperlipidemia. 4. GE reflux disease. 5. Status post EGD/colonoscopy. 6. Status post hysterectomy. 7. Status post PleurX catheter placement for right malignant pleural effusion. 8. MediPort placement. ALLERGIES: SULFA. MEDICATIONS: At home included; 1. Oxycodone. 2. Ondansetron. 3. Lisinopril. 4. Morphine sulfate. 5. Levothyroxine. 6. Omeprazole. 7. Sertraline. 8. Potassium chloride. SOCIAL HISTORY: The patient is a former smoker. Does not consume alcohol. She is care for by her granddaughter. REVIEW OF SYSTEMS: Ten-point review of systems did not show any other symptoms not mentioned above. PHYSICAL EXAMINATION: VITAL SIGNS: Temperature is 97.9, blood pressure 140/76, and pulse of 83. GENERAL: She is alert, conversant, without distress. HEENT: Exam shows bilateral icteric sclerae. Oropharynx is clear and moist. NECK: Supple without any adenopathy. CV: Shows normal S1 and S2. Regular rate and rhythm. CHEST: Show breath sounds. ABDOMEN: Mildly protuberant and firm, essentially nontender. No tympany. No distention. She has active bowel sounds. EXTREMITIES: Show no edema. LABORATORY DATA: WBCs 13.5, hemoglobin 13.1, and platelet count of 266. Electrolytes within normal range. Creatinine 0.45, bilirubin is 12.3, alkaline phosphatase 1466, AST 294, ALT 209, and lipase 164. DIAGNOSTIC STUDIES: Abdominal CT performed yesterday showed intrahepatic and extrahepatic biliary dilatation with gallbladder hydrops. There is a possible pancreatic head mass versus justin hepatis adenopathy. ASSESSMENT: 1. Metastatic disease with peritoneal carcinomatosis and right malignant pleural effusion. The patient has progression of disease and now presents with obstructive jaundice either from a pancreatic head mass or from dense justin hepatis adenopathy. 2. Obstructive jaundice. 3. Hypothyroidism. RECOMMENDATIONS: 1. We will proceed with ERCP with metal stent placement tomorrow. Indication including risks was reviewed with her and her granddaughter. 2. The patient indicated eventual plan to be treated at [facility] with clinical trials once her biliary system is decompressed. Job ID: [id number]
[2020-04-12] MEDS: Morphine 4 MG/ML VIAL SLOW IVP PRN (16:29)
[2020-04-12] MEDS ORDERED: Ondansetron ODT 8 MG TAB PO PRN (17:57)
[2020-04-12] MEDS ORDERED: oxyCODONE 5 MG TAB PO PRN (17:57)
--- NOTE | 2020-04-12 17:58 | PDOC.HOSPP ---
- Subjective Encounter Date: 04/12/20 Encounter Time: 17:45 Subjective: f/u for obstructive jaundice due to metastatic process with plans for ERCP in am. Abd pain improved and tolerated liquids. No N/V currently. - Objective Vital Signs & Weight: Vital Signs (12 hours) Temp Pulse Resp BP Pulse Ox 04/12/20 16:14 98.1 F 92 18 152/78 H 93 L 04/12/20 12:00 97.9 F 83 14 140/76 95 04/12/20 08:00 97.3 F L 76 14 138/68 98 Weight Admit Weight 104 lb 6.4 oz Weight 104 lb 6.4 oz Result Diagrams: 04/12/20 04:30 04/12/20 04:30 Additional Labs: Microbiology 04/11/20 23:12 Port - Left Subclavian Vein Blood Culture - Preliminary Specimen has been received and culture in progress. No Growth to date. Laboratory Tests 04/11/20 04/11/20 04/11/20 00:05 21:51 21:51 WBC 11.1 H INR D-Dimer Sodium 134 L Potassium 2.8 L* Lactic Acid Magnesium Total Bilirubin 12.3 H Direct Bilirubin AST 294 H ALT 209 H Alkaline Phosphatase 1466 H Ammonia B-Natriuretic Peptide Lipase 164 H Procalcitonin SARS-CoV-2 (PCR) Not Detected 04/11/20 04/11/20 04/11/20 21:58 23:12 23:12 WBC INR 2.1 D-Dimer Sodium Potassium Lactic Acid Magnesium 1.9 Total Bilirubin Direct Bilirubin AST ALT Alkaline Phosphatase Ammonia 67 B-Natriuretic Peptide Lipase Procalcitonin SARS-CoV-2 (PCR) 04/12/20 04/12/20 04/12/20 04:30 04:30 04:30 WBC INR D-Dimer Sodium Potassium Lactic Acid 1.0 Magnesium 2.0 Total Bilirubin Direct Bilirubin 6.9 H AST ALT Alkaline Phosphatase Ammonia B-Natriuretic Peptide Lipase Procalcitonin 0.46 SARS-CoV-2 (PCR) 04/12/20 04/12/20 04:30 04:30 WBC INR D-Dimer 5.08 H Sodium Potassium Lactic Acid Magnesium Total Bilirubin Direct Bilirubin AST ALT Alkaline Phosphatase Ammonia B-Natriuretic Peptide 73.1 Lipase Procalcitonin SARS-CoV-2 (PCR) Radiology Reviewed by me: Yes (CT abd - massive intra/extrahepatic dilation) Hospitalist ROS - Medication Medications: Active Medications Generic Name Dose Route Start Last Admin Trade Name Freq PRN Reason Stop Dose Admin Levothyroxine Sodium 150 mcg 04/12/20 06:00 04/12/20 06:36 Levothyroxine 150 Mcg Tab PO 150 mcg 0600 FLYNN Administration Lisinopril 10 mg 04/12/20 09:00 04/12/20 09:23 Lisinopril 10 Mg Tab PO Not Given DAILY FLYNN Morphine Sulfate 4 mg 04/12/20 15:23 04/12/20 16:29 Morphine 4 Mg/Ml Vial SLOW IVP 4 mg Q3H PRN Administration Pain 6-10 Polyethylene Glycol 17 gm 04/12/20 09:00 04/12/20 09:31 Polyethylene Glycol 3350 17 Gm Packet PO Not Given DAILY FLYNN - Exam General Appearance: NAD, awake alert Eye: PERRL, scleral icterus ENT: normocephalic atraumatic, no oropharyngeal lesions Neck: supple, symmetric, no JVD, no thyromegaly, no lymphadenopathy Heart: RRR, no gallops, no rubs, normal peripheral pulses Heart - other findings: S1, S2 Respiratory: CTAB, no wheezes, no rales, no ronchi, normal chest expansion Gastrointestinal: normal bowel sounds, no palpable masses, tender to palpation Gastrointestinal - other findings: TTP with mild distention Extremities: no cyanosis, no clubbing, no edema Skin: normal turgor, no lesions Skin - other findings: jaundiced Neurological: cranial nerve grossly intact, no new deficit Musculoskeletal: normal tone, generalized weakness Psychiatric: normal affect, A&O x 3 Hosp A/P (1) Obstructive jaundice due to cancer Code(s): K83.1 - OBSTRUCTION OF BILE DUCT; C80.1 - MALIGNANT (PRIMARY) NEOPLASM, UNSPECIFIED Status: Acute Plan: Secondary to metastatic process, plan for ERCP with stent placement in am, NPO after MN (2) Abdominal pain Code(s): R10.9 - UNSPECIFIED ABDOMINAL PAIN Status: Acute Qualifiers: Abdominal location: epigastric Qualified Code(s): R10.13 - Epigastric pain Plan: Secondary to #1, pain control, liquid diet (3) Hypokalemia Code(s): E87.6 - HYPOKALEMIA Status: Acute Plan: Improved, KCL supplementation, serial K+ (4) Metastatic adenocarcinoma Code(s): C79.9 - SECONDARY MALIGNANT NEOPLASM OF UNSPECIFIED SITE Status: Chronic Plan: Plan for outpt medical oncology follow up (5) Coagulopathy Status: Chronic Plan: Secondary to metastatic adenocarcinoma - Plan out of bed/ambulate, DVT proph w/SCDs Stable currently Continue liquid diet Resume home pain meds Plan for ERCP with stent in am AM lab: CMP, CBC, TSH
[2020-04-12] MEDS: Morphine ER 15 MG TAB PO SCH (19:19)
[2020-04-12] MEDS: cefTRIAXone\\ROCEPHIN 1 GM in Sodium Chloride 0.9% 100 ML IVPB SCH (21:00)
[2020-04-12] MEDS: Azithromycin 500 MG in Sodium Chloride 0.9% 250 ML 250 ML IVPB SCH (22:05)
[2020-04-13] MEDS: Levothyroxine 150 MCG TAB PO SCH (05:27)
[2020-04-13] MEDS: Morphine 4 MG/ML VIAL SLOW IVP PRN ×2 (05:32→17:10)
[2020-04-13 06:12] LABS: ALT (SGPT) 357 U/L (8-55); AST (SGOT) 597 U/L (5-34); Albumin 3.3 g/dL (3.4-4.8); Alkaline Phosphatase 2071 U/L (40-110); Anion Gap 14 mmol/L (10-20); BUN (Urea Nitrogen) 14 mg/dL (9.8-20.1); Bilirubin, Total 13.8 mg/dL (0.2-1.2); Calc. Creatinine Clearance 62 mL/min (70-130); Calcium 8.9 mg/dL (7.8-10.44); Carbon Dioxide 22 mmol/L (23-31); Chloride 101 mmol/L (98-107); Estimated GFR-MDRD Greater than 90; Globulin 3.4 g/dL (2.4-3.5); Glucose 103 mg/dL (83-110); Potassium 3.4 mmol/L (3.5-5.1); Protein, Total 6.7 g/dL (6.0-8.3); Sodium 134 mmol/L (136-145)
[2020-04-13 06:20] LABS: Band 22 % (5-11); Lymphocytes 15 % (21-51); MDiff Complete? YES; Mean Corpuscular HGB CONC 34.4 g/dL (32.0-36.0); Mean Corpuscular Hemoglobin 32.1 pg (27.0-31.0); Mean Corpuscular Volume 93.4 fL (78.0-98.0); Mean Platelet Volume 8.6 fL (7.4-10.4); Monocytes 6 % (0-10); Neutrophil 57 % (42-75); Platelet Count 300 thou/uL (130-400); Platelet Morphology Comment Appears Adequate; RBC Distribution Width 18.9 % (11.5-14.5); Red Blood Cell (RBC) Count 4.05 mill/uL (4.20-5.40); White Blood Cell (WBC) Count 13.8 thou/uL (4.8-10.8)
[2020-04-13] MEDS ORDERED: Potassium Chloride 20 MEQ TAB PO SCH (06:30)
[2020-04-13] MEDS ORDERED: Iothalamate Meglumine 60% 50 ML VIAL FS ONE (09:06)
[2020-04-13] MEDS ORDERED: Indomethacin 50 MG SUPP ONE ×2 (09:06→09:08)
[2020-04-13] MEDS ORDERED: SUGAMMADEX SODIUM 200 MG/2 ML VIAL ONE (09:10)
[2020-04-13] MEDS ORDERED: Fentanyl 100 MCG/2 ML VIAL ONE (09:10)
[2020-04-13] MEDS ORDERED: Promethazine HCl 25 MG/ML VIAL SLOW IVP PRN (10:05)
[2020-04-13] MEDS ORDERED: Promethazine HCl 25 MG/ML VIAL IM PRN (10:05)
[2020-04-13] MEDS ORDERED: HYDROmorphone 2 MG/ML VIAL SLOW IVP PRN (10:05)
[2020-04-13] MEDS ORDERED: Meperidine HCl/PF 25 MG/ML VIAL SLOW IVP PRN (10:05)
--- NOTE | 2020-04-13 11:15 | RAD ---
EXAM: ERCP HISTORY: Stone removal. Elevated bilirubin COMPARISON: CT abdomen/pelvis 04/11/2020 FINDINGS: Limited intraoperative fluoroscopic views were taken during a an ERCP. The common bile that severely enlarged and there is severe intrahepatic biliary dilatation. A wire is passed through the common bile duct which is not seen along the distal aspect. Eventually, a metallic stent is placed in this location. No leakage from the common bile duct. IMPRESSION: Stent placement in distal common bile duct
[2020-04-13] MEDS ORDERED: PHENYLEPHRINE-NS 100 MCG/ML 10 ML SYRINGE ONE (11:28)
[2020-04-13] MEDS ORDERED: Ondansetron PF 4 MG/2 ML Vial ONE (11:28)
[2020-04-13] MEDS ORDERED: Rocuronium Bromide 10 MG/ML (10ML VIAL) ONE (11:28)
[2020-04-13] MEDS ORDERED: PROPOFOL 200 MG/20 ML VIAL ONE (11:28)
[2020-04-13] MEDS ORDERED: Lidocaine 1% PF 5 ML VIAL ONE (11:28)
[2020-04-13] MEDS ORDERED: Glycopyrrolate 0.2 MG/ML 5 ML SYRINGE ONE (11:28)
[2020-04-13] MEDS ORDERED: Dexamethasone 20 MG/5 ML VIAL ONE (11:28)
[2020-04-13] MEDS: Potassium Chloride 20 MEQ TAB PO SCH (12:28)
[2020-04-13] MEDS: Morphine ER 15 MG TAB PO SCH ×2 (12:29→21:18)
[2020-04-13] MEDS: Lisinopril 10 MG TAB PO SCH (12:29)
[2020-04-13] MEDS: Polyethylene Glycol 3350 17 GM Packet PO SCH (12:30)
--- NOTE | 2020-04-13 13:11 | OP ---
DATE OF PROCEDURE: 04/13/2020 PROCEDURE PERFORMED: Endoscopic retrograde cholangiopancreatography with sphincterotomy and bile duct brushings for cytology and metal biliary stent placement. 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 DESCRIPTION OF PROCEDURE: Informed consent was obtained from the patient. She was sedated with general anesthesia and placed in the prone position. The duodenoscope was advanced easily to the second portion of the duodenum, where the ampulla was identified and appeared unremarkable. There was no flow of bile from the ampulla. The common bile duct was selectively cannulated with the sphincterotome and guidewire without difficulty. Cholangiogram was performed, which revealed a 4-cm stricture of the distal common bile duct at the level of the pancreatic head with markedly dilated intra and extrahepatic ducts proximal to that. Brushings of the bile duct were obtained. A complete sphincterotomy was performed. A coated metal stent was deployed across the stricture with excellent drainage of bile and contrast following placement of the stent. Air and fluid were suctioned from the stomach. The procedure was completed. IMPRESSION: 1. Cholangiogram showing 4 cm stricture of the distal common bile duct with marked intra and extrahepatic duct dilation proximal to that. 2. Bile duct brushings performed for cytology. 3. Complete sphincterotomy performed. 4. A coated metal stent was placed across the stricture with excellent drainage of dark bile and contrast. RECOMMENDATIONS: 1. Advance diet. 2. She could potentially discharge home this afternoon or tomorrow from a GI standpoint with Oncology followup. 3. Follow trend of her liver tests. Job ID: [id number]
--- NOTE | 2020-04-13 18:37 | PDOC.HOSPP ---
- Subjective Encounter Date: 04/13/20 Encounter Time: 18:30 Subjective: f/u for obstructive jaundice with metastatic process s/p ERCP with stent placement today. States feeling better overall. No fever, abd pain currently. Actually wants to eat. - Objective Vital Signs & Weight: Weight Admit Weight 104 lb 6.4 oz Weight 104 lb 6.4 oz I&O: 04/12/20 04/13/20 04/14/20 06:59 06:59 06:59 Intake Total 1250 Balance 1250 Result Diagrams: 04/13/20 05:37 04/13/20 05:37 Additional Labs: Microbiology 04/11/20 23:12 Port - Left Subclavian Vein Blood Culture - Preliminary Specimen has been received and culture in progress. No Growth to date. Laboratory Tests 04/11/20 04/11/20 04/11/20 00:05 21:51 21:51 WBC 11.1 H INR D-Dimer Sodium 134 L Potassium 2.8 L* Carbon Dioxide Lactic Acid Magnesium Total Bilirubin 12.3 H Direct Bilirubin AST 294 H ALT 209 H Alkaline Phosphatase 1466 H Ammonia B-Natriuretic Peptide Lipase 164 H Procalcitonin TSH 3rd Generation SARS-CoV-2 (PCR) Not Detected 04/11/20 04/11/20 04/11/20 21:58 23:12 23:12 WBC INR 2.1 D-Dimer Sodium Potassium Carbon Dioxide Lactic Acid Magnesium 1.9 Total Bilirubin Direct Bilirubin AST ALT Alkaline Phosphatase Ammonia 67 B-Natriuretic Peptide Lipase Procalcitonin TSH 3rd Generation SARS-CoV-2 (PCR) 04/12/20 04/12/20 04/12/20 04:30 04:30 04:30 WBC INR D-Dimer Sodium Potassium 4.2 Carbon Dioxide 19 L Lactic Acid 1.0 Magnesium 2.0 Total Bilirubin Direct Bilirubin 6.9 H AST ALT Alkaline Phosphatase Ammonia B-Natriuretic Peptide Lipase Procalcitonin 0.46 TSH 3rd Generation SARS-CoV-2 (PCR) 04/12/20 04/12/20 04/13/20 04:30 04:30 05:37 WBC INR D-Dimer 5.08 H Sodium Potassium Carbon Dioxide Lactic Acid Magnesium Total Bilirubin Direct Bilirubin AST ALT Alkaline Phosphatase Ammonia B-Natriuretic Peptide 73.1 Lipase Procalcitonin TSH 3rd Generation 58.9544 H SARS-CoV-2 (PCR) 04/13/20 05:37 WBC INR D-Dimer Sodium Potassium Carbon Dioxide Lactic Acid Magnesium Total Bilirubin 13.8 H Direct Bilirubin AST 597 H ALT 357 H Alkaline Phosphatase 2071 H Ammonia B-Natriuretic Peptide Lipase Procalcitonin TSH 3rd Generation SARS-CoV-2 (PCR) Hospitalist ROS - Medication Medications: Active Medications Generic Name Dose Route Start Last Admin Trade Name Freq PRN Reason Stop Dose Admin Azithromycin 500 mg/ Sodium 250 mls @ 250 mls/hr 04/12/20 23:00 04/12/20 22:05 Chloride IVPB 250 mls 2300 FLYNN Administration Ceftriaxone Sodium 1 gm/ 100 mls @ 200 mls/hr 04/12/20 22:00 04/12/20 21:00 Sodium Chloride IVPB 100 mls 2200 FLYNN Administration Levothyroxine Sodium 150 mcg 04/12/20 06:00 04/13/20 05:27 Levothyroxine 150 Mcg Tab PO Not Given 0600 FLYNN Lisinopril 10 mg 04/12/20 09:00 04/13/20 12:29 Lisinopril 10 Mg Tab PO 10 mg DAILY FLYNN Administration Morphine Sulfate 4 mg 04/12/20 15:23 04/13/20 17:10 Morphine 4 Mg/Ml Vial SLOW IVP 4 mg Q3H PRN Administration Pain 6-10 Morphine Sulfate 15 mg 04/12/20 21:00 04/13/20 12:29 Morphine Er 15 Mg Tab PO 15 mg BID FLYNN Administration Oxycodone HCl 5 mg 04/12/20 17:57 04/13/20 14:39 Oxycodone 5 Mg Tab PO 5 mg Q6H PRN Administration BREAKTHRU PAIN Polyethylene Glycol 17 gm 04/12/20 09:00 04/13/20 12:30 Polyethylene Glycol 3350 17 Gm Packet PO 17 gm DAILY FLYNN Administration Potassium Chloride 20 meq 04/13/20 08:00 04/13/20 12:28 Potassium Chloride 20 Meq Tab PO 20 meq QAM-WM FLYNN Administration Sertraline HCl 50 mg 04/12/20 21:00 04/12/20 21:00 Sertraline Hcl 25 Mg Tab PO 50 mg HS FLYNN Administration - Exam General Appearance: awake alert Eye: PERRL, scleral icterus ENT: normocephalic atraumatic, no oropharyngeal lesions Neck: supple, symmetric, no JVD, no thyromegaly, no lymphadenopathy Heart: RRR, no gallops, no rubs, normal peripheral pulses Heart - other findings: S1, S2 Respiratory: CTAB, no wheezes, no rales, no ronchi, normal chest expansion, no tachypnea Gastrointestinal: soft, normal bowel sounds Gastrointestinal - other findings: mild TTP RUQ, +hepatomegaly Extremities: no cyanosis, no clubbing Skin: normal turgor Skin - other findings: + jaundice Neurological: cranial nerve grossly intact, no new deficit Musculoskeletal: normal tone, normal strength Psychiatric: normal affect, A&O x 3 Hosp A/P (1) Obstructive jaundice due to cancer Code(s): K83.1 - OBSTRUCTION OF BILE DUCT; C80.1 - MALIGNANT (PRIMARY) NEOPLASM, UNSPECIFIED Status: Acute Plan: Metastatic process s/p ERCP with stent placement, continue to monitor LFT's (2) Abdominal pain Code(s): R10.9 - UNSPECIFIED ABDOMINAL PAIN Status: Acute Qualifiers: Abdominal location: epigastric Qualified Code(s): R10.13 - Epigastric pain Plan: See #1 (3) Hypokalemia Code(s): E87.6 - HYPOKALEMIA Status: Acute (4) Metastatic adenocarcinoma Code(s): C79.9 - SECONDARY MALIGNANT NEOPLASM OF UNSPECIFIED SITE Status: Chronic Plan: Follow up with outpt medical oncology at [facility] (5) Coagulopathy Status: Chronic - Plan plan discussed w/ family, social media community manager, out of bed/ambulate, DVT proph w/SCDs Stable currently Regular Vegetarian diet Resume home pain meds OOB/ambulate AM lab: CMP, CBC, FT4 Likely home in am
[2020-04-13] MEDS: cefTRIAXone\\ROCEPHIN 1 GM in Sodium Chloride 0.9% 100 ML IVPB SCH (21:19)
[2020-04-13] MEDS: Azithromycin 500 MG in Sodium Chloride 0.9% 250 ML 250 ML IVPB SCH (22:41)
[2020-04-14] MEDS: Levothyroxine 150 MCG TAB PO SCH (05:36)
[2020-04-14 06:06] LABS: ALT (SGPT) 463 U/L (8-55); AST (SGOT) 846 U/L (5-34); Albumin 2.9 g/dL (3.4-4.8); Alkaline Phosphatase 2247 U/L (40-110); Anion Gap 11 mmol/L (10-20); BUN (Urea Nitrogen) 20 mg/dL (9.8-20.1); Bilirubin, Total 12.8 mg/dL (0.2-1.2); Calc. Creatinine Clearance 62 mL/min (70-130); Calcium 8.4 mg/dL (7.8-10.44); Carbon Dioxide 23 mmol/L (23-31); Chloride 101 mmol/L (98-107); Estimated GFR-MDRD Greater than 90; Globulin 3.1 g/dL (2.4-3.5); Glucose 107 mg/dL (83-110); Potassium 4.6 mmol/L (3.5-5.1); Sodium 130 mmol/L (136-145)
[2020-04-14 07:18] LABS: Hemoglobin 12.2 g/dL (12.0-16.0); Mean Corpuscular HGB CONC 33.2 g/dL (32.0-36.0); Mean Corpuscular Hemoglobin 31.5 pg (27.0-31.0); Mean Platelet Volume 8.2 fL (7.4-10.4); Platelet Count 297 thou/uL (130-400); RBC Distribution Width 19.2 % (11.5-14.5); Red Blood Cell (RBC) Count 3.86 mill/uL (4.20-5.40); White Blood Cell (WBC) Count 14.3 thou/uL (4.8-10.8)
[2020-04-14 07:20] LABS: #Lymphocytes 0.9 thou/uL (1.20-3.40); #Monocytes 1.2 thou/uL (0.11-0.59); #Neutrophils 12.1 thou/uL (1.40-6.50); %Basophils 0.2 % (0.0-1.0); %Eosinophils 0.3 % (0.0-10.0); %Lymphocytes 6.3 % (21.0-51.0); %Monocytes 8.2 % (0.0-10.0)
[2020-04-14 07:31] LABS: Band 7 % (5-11); Lymphocytes 6 % (21-51); MDiff Complete? YES; Monocytes 3 % (0-10); Neutrophil 83 % (42-75); Platelet Morphology Comment Appears Adequate; Polychromasia SLIGHT = 2-3 cells (100X) (0-2/hpf); Reactive Lymphocytes 1 % (0-10)
[2020-04-14 08:27] VITALS: BP 139/62; TEMP 98.7
[2020-04-14] MEDS: Lisinopril 10 MG TAB PO SCH (09:57)
[2020-04-14] MEDS: Potassium Chloride 20 MEQ TAB PO SCH (09:57)
[2020-04-14] MEDS: Polyethylene Glycol 3350 17 GM Packet PO SCH (09:58)
[2020-04-14] MEDS: Morphine ER 15 MG TAB PO SCH (09:58)
--- NOTE | 2020-04-14 10:10 | DIS ---
DATE OF ADMISSION: 04/11/2020 DATE OF DISCHARGE: 04/14/2020 DISCHARGE DIAGNOSES: 1. Obstructive jaundice due to metastatic colon cancer, status post ERCP with biliary stent placement, 04/13/2020. 2. Metastatic adenocarcinoma with current chemotherapy. 3. Abdominal pain secondarily to #1 and #2. 4. Hypokalemia, resolved. 5. Coagulopathy secondarily to metastatic adenocarcinoma to the liver. 6. Transaminitis secondarily to biliary obstruction. 7. Hypothyroidism. CONSULTATIONS: Dr. Stock and Dr. Barraza with GI Service. PERTINENT LABORATORY AND X-RAY FINDINGS: Sodium ranged between 130 to 134, potassium ranged between 2.8 to 4.6. Total bilirubin ranged between 12.3 to 13.8, magnesium level ranged between 1.9 to 2.0. AST ranged between 294 to 846. ALT ranged between 209 to 463. Alkaline phosphatase ranged between 1466 to 2247. Serum ammonia level 67. BNP 73. Albumin ranged between 2.9 to 3.3. TSH 58.95, free T4 of 0.77. CBC showed a white blood cell count ranging between 11.1 to 14.3. PT 24.4, INR 2.1. D-dimer 5.08. COVID-19 PCR not detected, 04/11/2020. Blood cultures x2 dated 04/11/2020, showed no growth at 48 hours. Portable chest x-ray dated 04/11/2020, showed hazy airspace opacities, nonspecific. Subsegmental volume loss with small right pleural effusion. CT of the abdomen dated 04/11/2020, showed massive intra and extrahepatic biliary dilatation with marked distention and hydrops of the gallbladder. Pancreatic head mass noted. PET scan dated 03/30/2020, showed worsening metastatic disease. Multiple new hypermetabolic lymph nodes in the lower neck, supraclavicular, and left axillary region. Hypermetabolic osseous metastatic disease noted. HOSPITAL COURSE: The patient was initially admitted after presenting with increasing abdominal distention in addition to jaundice in the context of metastatic colon cancer, undergoing current chemotherapy. The patient with recent PET scan 03/30/2020, showing progression of previously diagnosed metastatic adenocarcinoma involving lymphadenopathy as well as osseous metastasis. The patient underwent CT imaging of the abdomen showing massive dilation of the intra and extrahepatic biliary ducts and concern for pancreatic head mass. The patient was evaluated by the GI Service, undergoing ERCP evaluation with sphincterotomy and metal bile duct stent placement 04/13/2020. The patient tolerated the procedure with overall decreased abdominal discomfort. The patient was able to tolerate small amounts of p.o. intake, mainly liquids without nausea or vomiting. Current recommendations are to pursue outpatient medical Oncology followup when the patient returns to [facility] to continue her treatment regimen. Overall, the patient did remain clinically stable during the hospital course. Vital signs remained stable; however, liver function tests remain elevated and will need to be trended on an outpatient basis. I have examined the patient at the time of discharge and discussed followup instructions. The patient verbalized understanding and agreement, ready for discharge on 04/14/2020. DISCHARGE MEDICATIONS: 1. K-Dur 20 mEq p.o. daily. 2. Levothyroxine 150 mcg p.o. daily. 3. Morphine sulfate extended release 15 mg p.o. b.i.d. 4. Oxycodone 5 mg p.o. q.6 hours p.r.n. pain. 5. Omeprazole 20 mg p.o. daily. 6. Sertraline 50 mg p.o. at bedtime. 7. Zofran 8 mg p.o. t.i.d. p.r.n. nausea and vomiting. FOLLOWUP: The patient may follow up with her primary care provider, Kalli Castaneda. The patient may follow up with [facility] on 04/25/2020. CONDITION ON DISCHARGE: Fair. ACTIVITY: Ad-justice. DIET: Regular. CODE STATUS: Full. SPECIAL INSTRUCTIONS: Recommend repeat LFTs at first followup visit. DISPOSITION: To home 04/14/2020. TIME SPENT: Total time preparing and coordinating discharge, 32 minutes. Job ID: [id number]
== END 2020-04-14 10:30 | disposition home or self-care (01) | DRG 445 ==
LOC: ERS 21:25 → ONC 23:16
PROVIDERS: ADMIT Internal Medicine; ATTEND Internal Medicine
PROC: 3E02340 Introduction of Influenza Vaccine into Muscle, Percutaneous Approach (ICD-10-PCS; 2020-04-12)
PROC: 0F798DZ Dilation of Common Bile Duct with Intraluminal Device, Via Natural or Artificial Opening Endoscopic (ICD-10-PCS; principal; 2020-04-13)
DX: K83.1 Obstruction of bile duct (principal); C18.9 Malignant neoplasm of colon, unspecified; C78.6 Secondary malignant neoplasm of retroperitoneum and peritoneum; J91.0 Malignant pleural effusion; C78.7 Secondary malignant neoplasm of liver and intrahepatic bile duct; C77.9 Secondary and unspecified malignant neoplasm of lymph node, unspecified; C79.51 Secondary malignant neoplasm of bone; C78.89 Secondary malignant neoplasm of other digestive organs; Z20.828 Contact with and (suspected) exposure to other viral communicable diseases; Z23 Encounter for immunization; K21.9 Gastro-esophageal reflux disease without esophagitis; E78.5 Hyperlipidemia, unspecified; E03.9 Hypothyroidism, unspecified; E87.6 Hypokalemia; Z88.2 Allergy status to sulfonamides; Z90.49 Acquired absence of other specified parts of digestive tract; Z79.899 Other long term (current) drug therapy; Z79.890 Hormone replacement therapy
CPT/HCPCS: 36415; 71045; 74170; 74330; 80048; 80053; 82140; 82248; 83605; 83690; 83735; 83880; 84145; 84439; 84443; 85025; 85379; 85610; 85730; 87635; 88104; 88112; 93005; 96365; 96375; C1874; J0456; J0696; J1100; J1610; J2270; J2405; J2704; J3010; J3475; J3490; J7050; U0003

== ENCOUNTER 2020-04-14 21:42 | Inpatient (IN) | payer MEDICARE, OTHER ==
[2020-04-14 22:34] LABS: Hemoglobin 13.6 g/dL (12.0-16.0); Mean Corpuscular HGB CONC 33.4 g/dL (32.0-36.0); Mean Corpuscular Hemoglobin 31.6 pg (27.0-31.0); Mean Corpuscular Volume 94.6 fL (78.0-98.0); Mean Platelet Volume 7.7 fL (7.4-10.4); Platelet Count 326 thou/uL (130-400); RBC Distribution Width 19.4 % (11.5-14.5); Red Blood Cell (RBC) Count 4.29 mill/uL (4.20-5.40); White Blood Cell (WBC) Count 15.4 thou/uL (4.8-10.8)
[2020-04-14 22:46] LABS: ALT (SGPT) 550 U/L (8-55); AST (SGOT) 921 U/L (5-34); Albumin 3.2 g/dL (3.4-4.8); Alkaline Phosphatase 2561 U/L (40-110); Anion Gap 16 mmol/L (10-20); BUN (Urea Nitrogen) 20 mg/dL (9.8-20.1); Bilirubin, Total 13.6 mg/dL (0.2-1.2); CK (CPK) 163 U/L (29-168); Calc. Creatinine Clearance 0 mL/min (70-130); Carbon Dioxide 24 mmol/L (23-31); Chloride 98 mmol/L (98-107); Estimated GFR-MDRD Greater than 90; Globulin 3.6 g/dL (2.4-3.5); Glucose 111 mg/dL (83-110); Lipase 241 U/L (8-78); Potassium 4.6 mmol/L (3.5-5.1); Protein, Total 6.8 g/dL (6.0-8.3); Sodium 133 mmol/L (136-145)
[2020-04-14 22:51] LABS: #Eosinphils 0.1 thou/uL (0.0-0.7); #Lymphocytes 0.8 thou/uL (1.20-3.40); #Monocytes 1.1 thou/uL (0.11-0.59); #Neutrophils 13.4 thou/uL (1.40-6.50); %Basophils 0.1 % (0.0-1.0); %Eosinophils 0.6 % (0.0-10.0); %Lymphocytes 5.4 % (21.0-51.0); %Monocytes 7.2 % (0.0-10.0); %Neutrophils 86.7 % (42.0-75.0)
[2020-04-15] MEDS ORDERED: Sucralfate 1 GM/10 ML UDCUP ONE (00:11)
[2020-04-15] MEDS ORDERED: Ondansetron PF 4 MG/2 ML Vial ONE (01:46)
[2020-04-15] MEDS ORDERED: Cefepime 2 GM VIAL ONE (02:13)
[2020-04-15] MEDS ORDERED: Vancomycin 1 GM/200 ML BAG ONE (02:24)
--- NOTE | 2020-04-15 03:15 | PDOC.EVN ---
Event Note - Event Note Event Note: [id number] dictated
[2020-04-15 03:27] LABS: Troponin I Less than 0.010 ng/mL (< 0.028)
[2020-04-15] MEDS ORDERED: Pantoprazole 40 MG VIAL IVP SCH (03:30)
[2020-04-15 03:41] LABS: Hemoglobin 12.7 g/dL (12.0-16.0); Mean Corpuscular HGB CONC 34.1 g/dL (32.0-36.0); Mean Corpuscular Hemoglobin 32.1 pg (27.0-31.0); Mean Corpuscular Volume 94.2 fL (78.0-98.0); Mean Platelet Volume 9.1 fL (7.4-10.4); Platelet Count 328 thou/uL (130-400); RBC Distribution Width 19.9 % (11.5-14.5); Red Blood Cell (RBC) Count 3.95 mill/uL (4.20-5.40); White Blood Cell (WBC) Count 15.3 thou/uL (4.8-10.8)
[2020-04-15 04:02] LABS: #Eosinphils 0.1 thou/uL (0.0-0.7); #Lymphocytes 0.7 thou/uL (1.20-3.40); #Monocytes 0.7 thou/uL (0.11-0.59); #Neutrophils 13.8 thou/uL (1.40-6.50); %Basophils 0.1 % (0.0-1.0); %Eosinophils 0.5 % (0.0-10.0); %Lymphocytes 4.8 % (21.0-51.0); %Monocytes 4.8 % (0.0-10.0); %Neutrophils 89.8 % (42.0-75.0)
[2020-04-15 04:37] VITALS: BMI 23.3
[2020-04-15] MEDS: Sodium Chloride 0.9% 1,000 ML IV SCH ×2 (05:10→17:30)
[2020-04-15] MEDS: cefTRIAXone\\ROCEPHIN 1 GM in Sodium Chloride 0.9% 100 ML IVPB SCH (05:11)
[2020-04-15] MEDS ORDERED: hydrALAZINE 20 MG/ML VIAL SLOW IVP PRN (05:53)
[2020-04-15] MEDS: metroNIDAZOLE 500 MG in Premix Bag 1 BAG IVPB SCH ×3 (06:16→21:56)
[2020-04-15 06:19] LABS: Troponin I Less than 0.010 ng/mL (< 0.028)
[2020-04-15] MEDS: Morphine 2 MG/ML VIAL SLOW IVP PRN ×3 (06:24→17:25)
[2020-04-15] MEDS ORDERED: Acetaminophen 325 MG TAB PO PRN (07:16)
--- NOTE | 2020-04-15 07:31 | RAD ---
PORTABLE CHEST: Date: 04/14/2020 HISTORY: Chest pain. COMPARISON: 04/11/2020 exam. FINDINGS: Heart size is upper limits of normal. There is a left-sided MediPort catheter present. Pulmonary vess els are engorged. There are increased interstitial lung markings which appear slightly more prominent than the prior exam. I suspect that some element of this is related to edema. There are bibasilar harjinder ng changes. Changes in the left base are slightly worsened as compared to the prior exam. IMPRESSION: Pulmonary vascular engorgement and more prominent interstitial changes in both lung [place] suggest th ere is some element of edema present. In addition, the bibasilar lung changes are noted with some rig ht-sided pleural changes. Changes in the right base are felt to be fairly similar. There is some incr ease to the left-sided changes which could indicate infiltrate or be part of the pulmonary edema proc ess. POS: OFF
--- NOTE | 2020-04-15 07:36 | CT ---
CT OF BRAIN PERFORMED WITHOUT CONTRAST ENHANCEMENT: Date: 04/14/2020 HISTORY: Altered mental status. FINDINGS: There is some generalized ventricular and sulcal prominence. Decreased attenuation of the periventric ular white matter consistent with chronic white matter change. No signs of intracerebral hemorrhage o r extra-axial fluid collections. The mastoid air cells and visualized sinuses are clear. IMPRESSION: No acute intracranial abnormalities. POS: OFF
--- NOTE | 2020-04-15 07:52 | RAD ---
EXAM: XR Abdomen 2 View PROVIDED CLINICAL HISTORY: Abdominal pain and distention. COMPARISON: Chest x-ray on 04/14/2020 FINDINGS: Interstitial and patchy parenchymal opacities are seen at each lung base which may be related to biba silar pneumonia. Left-sided Mediport catheter is noted in place. Vascular calcifications are seen in the thoracic aorta. Gaseous distention of the colon is present with moderate amount of retained fecal material in the asc ending colon and in the rectum. Biliary stent overlies the mid abdomen. Vascular calcifications are seen in the abdominal aorta and in the iliac arteries. Degenerative changes are noted in the spine. IMPRESSION: 1. Bibasilar interstitial and patchy parenchymal opacities worrisome for bibasilar pneumonia. Follow- up to resolution is recommended. 2. Gaseous distention of the colon as well as gaseous distention of the stomach.
[2020-04-15] MEDS: Ondansetron HCl/PF 4 MG in Sodium Chloride 0.9% 50 ML IVPB PRN ×3 (08:02→22:48)
[2020-04-15] MEDS: Pantoprazole 40 MG VIAL IVP SCH ×2 (08:07→20:35)
--- NOTE | 2020-04-15 08:25 | CT ---
PRELIMINARY REPORT/[facility]/EMERGENCY AFTER HOURS PROCEDURE EXAM: CT Abdomen and Pelvis Without Intravenous Contrast CLINICAL HISTORY: , PT WAS DISCHARGED TODAY AT AROUND 1200. PTS GRANDDAUGHTER STATES THAT SHE VOMITED SHORTLY AFTER PING VING AND HAS NOT BEEN ABLE TO HOLD ANYTHING DOWN TECHNIQUE: Axial computed tomography images of the abdomen and pelvis without intravenous contrast. CONTRAST: None. COMPARISON: None provided. FINDINGS: LUNG BASES: Patchy consolidative opacities in the right lower lobe with diffuse nodular opacities and interlobula r septal thickening of the lung bases and lingula. LIVER: Unremarkable. GALLBLADDER AND BILE DUCTS: Distended. Although gallbladder not well visualized. Common biliary ductal stent. Pneumobilia. Mu ltiple hypodensities and dilated intrahepatic biliary ducts. PANCREAS: Unremarkable. SPLEEN: Unremarkable. ADRENAL GLANDS: Unremarkable. KIDNEYS, URETERS, AND BLADDER: Unremarkable. No hydronephrosis or nephrolithiasis. No ureteral or bladder calculi. STOMACH AND BOWEL: No obstruction. No wall thickening. No CT evidence of colitis or acute diverticulitis. APPENDIX: No CT evidence for appendicitis. PERITONEUM: Moderate amount of ascites. No free air. LYMPH NODES: No lymphadenopathy. REPRODUCTIVE: Unremarkable as visualized. VASCULATURE: No aortic aneurysm. Scattered atherosclerotic vascular calcifications. ABDOMINAL WALL AND SOFT TISSUES: Bilateral breast implants. BONES: No acute fracture or suspicious osseous abnormality. Chronic appearing fracture deformity of the lef t posterior T11 rib. Severe multilevel degenerative changes of the spine most pronounced at L2-3. IMPRESSION: 1. Evaluation is somewhat limited secondary to lack of intravenous and oral contrast. 2. Pneumobilia with common bile duct stent coursing along the expected course of the common bile nakul t. Hypodensities in the liver and intrahepatic biliary ductal dilatation. 3. Multiple fluid debris and gaseous distended loops of bowel in a nonobstructive pattern. 4. Moderate amount of ascites. 5. Small right pleural effusion with opacities in the right greater than left lung bases may represe nt aspiration or underlying infection. ELECTRONICALLY SIGNED BY: Carlos Moran DO Apr 15, 2020 1:58:29 AM CDT This report is intended for review by the ordering physician only, in accordance of law. If you recei ve this report in error, please call [facility] at [phone]. FINAL REPORT EMERGENT AFTER HOURS NONCONTRAST CT ABDOMEN AND PELVIS: HISTORY: Abdominal distention. Vomiting. COMPARISON: 04/11/2020. IMPRESSION: 1. Tiny right pleural effusion with interstitial and patchy parenchymal densities at each lung base w ith suggestion of irregular nodules at each lung base as well. Findings could be related to infectious process. There does appear to be associated mild interstitial thickening. Follow-up evalua tion is recommended to ensure resolution. 2. Interval placement of a common bile duct stent with improvement in severe biliary ductal dilatatio n with pneumobilia now present. There is evidence of mild periportal edema. 3. Gallbladder is distended but not well evaluated on this exam. 4. Peripherally located hypodense lesions adjacent to the liver unchanged when compared to prior stud y and also seen on study of 07/05/2019. 5. Distention of the stomach with fluid and gas. Fluid-filled loops of small bowel are seen. Moderate amount retained fecal material seen in the region of the ascending colon. 6. Anasarca. 7. Distention of the urinary bladder. 8. Findings are in agreement with preliminary report by [facility]. Transcribed Date/Time: 04/15/2020 8:55 AM
[2020-04-15 08:32] LABS: INR-International Normal Ratio 1.9; Prothrombin Time 22.2 sec (12.0-14.7)
[2020-04-15] MEDS ORDERED: Famotidine/PF 20 mg/2ml Vial SLOW IVP SCH (09:00)
[2020-04-15] MEDS ORDERED: FLU VACC QS2020-21(65YR UP)/PF 240 MCG/0.7 ML SYRINGE IM ONE (09:00)
--- NOTE | 2020-04-15 12:43 | HP ---
CHIEF COMPLAINT: Vomiting blood and altered mental status. HISTORY OF PRESENT ILLNESS: Ms. Long is a 79-year-old female with past medical history of metastatic colon cancer, on chemotherapy, was just discharged from the hospital yesterday, was brought back to the emergency room because of vomiting blood as per granddaughter and worsening mental status. The patient was just recently admitted to the hospital for obstructive jaundice and had ERCP with sphincterotomy and stent placement. The patient has elevated LFTs, elevated bilirubin, elevated INR. Workup today, LFTs remain markedly elevated and bilirubin also is still elevated. WBC count is elevated to 15,000. Imaging studies were done in the ED. No official report yet, but it was mentioning that possible bilateral infiltrates in the lower lung zones and also pneumobilia. The patient had a stent placed recently. Septic workup done in the ED. Started on IV antibiotics. Also the patient's granddaughter mentioned the patient vomited blood. The patient will be started on IV proton pump inhibitor and we will consult GI. PAST MEDICAL HISTORY: 1. Colon cancer with metastasis, on chemotherapy. 2. Hypothyroidism. 3. Hyperlipidemia. 4. Coagulopathy. PAST SURGICAL HISTORY: 1. Recent ERCP with stent placement. 2. Hysterectomy. 3. Vein procedures, right leg. SOCIAL HISTORY: Denies alcohol drinking, smoking, or drug abuse. FAMILY HISTORY: Reviewed and noncontributory. HOME MEDICATIONS: Please see home medication reconciliation form for updated medications. REVIEW OF SYSTEMS: The patient is kind of confused, is unreliable, but unable to obtain due to underlying medical condition. PHYSICAL EXAMINATION: GENERAL: The patient is awake, kind of confused, jaundiced. HEAD AND NECK: Neck is supple, icteric sclera. CHEST: Decreased air entry bilaterally. HEART: S1, S2. Regular. ABDOMEN: Distended. Mild diffuse tenderness. Bowel sounds hypoactive. NEUROLOGIC: Awake, moving extremities, oriented x2. VITAL SIGNS: Blood pressure is 160/80, pulse is 90, respiratory rate is 20, oxygen saturation is 96% on 2 L/minute nasal cannula. LABORATORY DATA: WBC 15.4, hemoglobin 13.6, platelets 326. Sodium 133. AST 921, ALT 550, alkaline phosphatase 2561, bilirubin is 13.6. IMAGING STUDIES: CT abdomen and pelvis, official report is still pending at the time of this dictation. ASSESSMENT AND PLAN: 1. Gastrointestinal bleeding, the patient vomited blood as per granddaughter. 2. Colon cancer with metastasis. 3. Recent ERCP with sphincterotomy and stent placement. 4. Coagulopathy. 5. Jaundice, obstructive, liver metastasis. 6. Pneumonia??? 7. Hypothyroidism. PLAN: 1. Admit. 2. We will keep n.p.o. for now. 3. We will reconsult GI for evaluation and further recommendations. 4. We will treat now with IV antibiotics, reassess in a.m. 5. Follow CT abdomen and pelvis results. 6. Reconcile home medications. 7. DVT prophylaxis, SCDs. 8. Expected length of stay, 2 midnights or more. Case discussed with the patient's family and ED physician. Job ID: [id number]
--- NOTE | 2020-04-15 12:58 | CON ---
DATE OF CONSULTATION: 04/15/2020 CHIEF COMPLAINT: Confusion. HISTORY OF PRESENT ILLNESS: Ms. Long is a 79-year-old woman who was discharged from the hospital yesterday after receiving a metal bile duct stent for a malignant obstructive jaundice, which was placed on 04/13/2020. Yesterday afternoon or evening, she became progressively confused and her family brought her back to the emergency room early this morning. Currently, she is oriented to her name and to the year, but has trouble recalling the location. She does not believe she has had a bowel movement for a while. Has no abdominal pain. She apparently did throw up some clear emesis with specks of black in it this morning, which I viewed. This was very small volume. PAST MEDICAL HISTORY: 1. 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 2. Hypothyroidism. 3. Hyperlipidemia. PAST SURGICAL HISTORY: Hysterectomy, EGD and colonoscopy, ERCP with metal biliary stent placement a couple of days ago. FAMILY HISTORY: Negative for GI malignancies. SOCIAL HISTORY: She is a former smoker. No alcohol or drugs. ALLERGIES: SULFA. MEDICATIONS: at the time of discharge yesterday include: 1. Potassium. 2. Levothyroxine. 3. Morphine. 4. Oxycodone. 5. Omeprazole. 6. Sertraline. 7. Zofran. REVIEW OF SYSTEMS: Negative x10 systems reviewed except as stated in history of present illness. PHYSICAL EXAMINATION: VITAL SIGNS: Temperature 97.6, pulse 93, blood pressure 141/77. GENERAL: She is in no acute distress. She is oriented to her name and to the year, but slow to answer questions and is unable to provide much detail. She was not oriented to the place. HEENT: Her eyes have scleral icterus. She is jaundiced. Her oropharynx is clear without lesions. No cervical or supraclavicular lymphadenopathy. LUNGS: Clear to auscultation bilaterally. HEART: Regular rate and rhythm without murmur. ABDOMEN: Soft, nontender. Bowel sounds are present. EXTREMITIES: No lower extremity edema. Neurologic: No asterixis on neurological exam. LABORATORY DATA: INR 1.9, creatinine 0.61, bilirubin 13.6, AST 921, ALT 550, alk phos 2561, ammonia 55, albumin 3.2, lipase 241. LABORATORY DATA: White blood cell count 15.3, hemoglobin 12.7, platelets 328. IMPRESSION: 1. 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 Cytology, brushings from the bile duct are positive for malignant cells, but more details could not be delineated. She has had known carcinomatosis from metastatic cancer of GI primary for which she has received chemotherapy. Now with the obstructive jaundice this limits her ability to receive further chemo or clinical trials. She has a stent across the stricture and had a decompression of the bile ducts and good drainage of bile and contrast. However, her bilirubin is not coming down as nicely as I would like to see. She could just have decompensation of her liver disease at this point or additional intrahepatic metastases. 2. Encephalopathy. She does not have asterixis and her ammonia is not significantly elevated. Still she has had decreased frequency of bowel movements and progressive liver dysfunction and I would treat her with lactulose to achieve 2 or 3 soft stools per day. RECOMMENDATIONS: 1. Lactulose. 2. Follow trend of her liver tests. Job ID: [id number]
[2020-04-15] MEDS ORDERED: Bisacodyl 10 MG SUPP PR SCH ×2 (14:45→15:00)
--- NOTE | 2020-04-15 17:59 | PDOC.EVN ---
Event Note - Event Note Event Note: 79F admitted overnight with AMS, epigastric pain, with a history of colon cancer with mets. Was seen at [facility] on Friday, they suggested the patient's jaundice needed to be better controlled before she could be entered in any research trials. She had an ERCP with a biliary stent on 04/14 and was sent home. Patient's family at the bedside mentioned she hasn't been herself since Friday but worse after discharge. They mentioned the patient told them she wanted to come back to the hospital, so they brought her back to the ED. This afternoon, she was re-evaluated by this hospitalist REFRIGERATING MACHINE OPERATOR, she was getting back into bed after being up trying to have a BM. She was a little winded but was able to speak in full sentences. No increased work of breathing noted. Her abdomen is distended but non-tender to palpation. She has had several doses of oral lactulose today without a successful BM. The nurse at the bedside stated she was about to call Dr. Stock as he asked to be notified if she wasn't able to have a bowel movement with the lactulose doses. We will repeat the CXR tonight and labs in the AM. Case discussed with Dr. No who agrees to plan.
--- NOTE | 2020-04-15 20:03 | RAD ---
PORTABLE CHEST: 04/15/20 HISTORY: Follow-up of infiltrates and effusions. Review is made of both prior day's chest x-ray and today's CT of the abdomen. Heart size appears bor derline enlarged. A Mediport catheter is again noted. Increased density is seen over both mid lung fi elds as compared to the previous exam that is more prominent than the prior study but in reviewing th e CT study, it is possible that these changes are just purely related to the breast implants although it is difficult to exclude increasing mid lung field parenchymal changes. This does not represent ef fusions as no significant effusion is seen on the CT of the abdomen. The bibasilar lung changes are s imilar. IMPRESSION: Overall worsening in the appearance to the density in both mid lung [place] as compared to the prior s tudy although I believe some portion or possibly all of this is just purely related to the position o f patient's breast implants. The bibasilar lung changes appear similar, slightly more confluent good es in the right base. Follow-up chest films would be recommended to assess whether these changes are real or just related to the slight differences in positioning of the implants. POS: OFF
[2020-04-15] MEDS ORDERED: Promethazine HCl 25 MG in Sodium Chloride 0.9% 50 ML IVPB PRN (20:17)
[2020-04-15] MEDS: Morphine ER 15 MG TAB PO SCH (20:34)
[2020-04-15] MEDS: oxyCODONE 5 MG TAB PO PRN (21:54)
[2020-04-16] MEDS: Sodium Chloride 0.9% 1,000 ML IV SCH (00:52)
[2020-04-16] MEDS: oxyCODONE 5 MG TAB PO PRN ×2 (04:22→15:34)
[2020-04-16] MEDS: cefTRIAXone\\ROCEPHIN 1 GM in Sodium Chloride 0.9% 100 ML IVPB SCH (04:34)
[2020-04-16 04:55] LABS: ALT (SGPT) 446 U/L (8-55); AST (SGOT) 651 U/L (5-34); Albumin 2.8 g/dL (3.4-4.8); Alkaline Phosphatase 2078 U/L (40-110); Anion Gap 15 mmol/L (10-20); BUN (Urea Nitrogen) 22 mg/dL (9.8-20.1); Bilirubin, Total 8.6 mg/dL (0.2-1.2); Calc. Creatinine Clearance 78 mL/min (70-130); Calcium 8.7 mg/dL (7.8-10.44); Carbon Dioxide 19 mmol/L (23-31); Chloride 104 mmol/L (98-107); Estimated GFR-MDRD Greater than 90; Glucose 88 mg/dL (83-110); Protein, Total 5.8 g/dL (6.0-8.3); Sodium 134 mmol/L (136-145)
[2020-04-16] MEDS: metroNIDAZOLE 500 MG in Premix Bag 1 BAG IVPB SCH ×3 (05:29→21:39)
[2020-04-16 06:59] LABS: #Eosinphils 0.1 thou/uL (0.0-0.7); #Lymphocytes 0.8 thou/uL (1.20-3.40); #Monocytes 0.8 thou/uL (0.11-0.59); #Neutrophils 9.7 thou/uL (1.40-6.50); %Basophils 0.1 % (0.0-1.0); %Eosinophils 0.5 % (0.0-10.0); %Lymphocytes 6.9 % (21.0-51.0); %Monocytes 7.1 % (0.0-10.0); %Neutrophils 85.5 % (42.0-75.0); Hemoglobin 11.1 g/dL (12.0-16.0); Mean Corpuscular HGB CONC 33.8 g/dL (32.0-36.0); Mean Corpuscular Hemoglobin 32.2 pg (27.0-31.0); Mean Corpuscular Volume 95.3 fL (78.0-98.0); Mean Platelet Volume 7.7 fL (7.4-10.4); Platelet Count 299 thou/uL (130-400); RBC Distribution Width 19.4 % (11.5-14.5); Red Blood Cell (RBC) Count 3.43 mill/uL (4.20-5.40); White Blood Cell (WBC) Count 11.3 thou/uL (4.8-10.8)
[2020-04-16 07:00] LABS: Anisocytosis MODERATE=16-30 cells (100X) (0-5/hpf); MDiff Complete? YES
--- NOTE | 2020-04-16 09:35 | PDOC.HOSPP ---
- Subjective Encounter Date: 04/16/20 Encounter Time: 09:00 Subjective: Patient seen this morning. Was eating breakfast and then wanted to sit up on the side of the bed. Grand daughter at the bedside. Expressed interest in talking to palliative care as a family to help everyone understand prognosis and resources. They plan on taking patient home when cleared and would like a hospital bed and other durable care products to make it easier for the patient. Had a restless night. Grand daughter reports patient vomited up PO pain meds and then was given some phenergan which made her sleep for awhile. Patient reports pain is unchanged. No BM with po and MA doses of lactulose in the last 24 hours. Family reports she is also not eating very much. - Objective Vital Signs & Weight: Vital Signs (12 hours) Temp Pulse Resp BP BP Pulse Ox 04/16/20 08:00 98.2 F 88 18 178/85 H 93 L 04/16/20 00:00 98.0 F 90 20 162/82 H 92 L Weight Weight 54.233 kg I&O: 04/15/20 04/16/20 04/17/20 06:59 06:59 06:59 Intake Total 1395 985 Output Total 210 Balance 1185 985 Result Diagrams: 04/16/20 04:20 04/16/20 04:20 Additional Labs: Accuchecks 04/16/20 06:14 POC Glucose 88 Hospitalist ROS - Review of Systems Constitutional: denies: fever, chills, sweats, weakness, malaise, other Eyes: denies: pain, vision change, conjunctivae inflammation, eyelid inflammation, redness, other ENT: denies: ear pain, ear discharge, nose pain, nose discharge, nose c ongestion, mouth pain, mouth swelling, throat pain, throat swelling, other Respiratory: reports: cough, SOB with excertion Cardiovascular: denies: chest pain, palpitations, orthopnea, paroxysmal noc. dyspnea, edema, light headedness, other Gastrointestinal: reports: nausea, vomiting, abdominal pain Genitourinary: denies: dysuria, frequency, incontinence, hematuria, retention, other Musculoskeletal: denies: neck pain, shoulder pain, arm pain, back pain, hand pain, leg pain, foot pain, other Neurological: reports: weakness, confusion - Medication Medications: Active Medications Generic Name Dose Route Start Last Admin Trade Name Freq PRN Reason Stop Dose Admin Sodium Chloride 1,000 mls @ 75 mls/hr 04/15/20 04:00 04/16/20 00:52 Normal Saline 0.9% IV 1,000 mls .[id number] FLYNN Administration Ceftriaxone Sodium 1 gm/ 100 mls @ 200 mls/hr 04/15/20 04:00 04/16/20 04:34 Sodium Chloride IVPB 100 mls 0400 FLYNN Administration Metronidazole 500 mg/ Device 100 mls @ 100 mls/hr 04/15/20 06:00 04/16/20 05:29 IVPB 100 mls Q8HR FLYNN Administration Ondansetron HCl 4 mg/ Sodium 52 mls @ 200 mls/hr 04/15/20 06:03 04/15/20 22:48 Chloride IVPB 52 mls Q6H PRN Administration Nausea Promethazine HCl 25 mg/ Sodium 51 mls @ 102 mls/hr 04/15/20 20:17 04/16/20 00:53 Chloride IVPB 51 mls Q6H PRN Administration Nausea Morphine Sulfate 2 mg 04/15/20 06:02 04/15/20 17:25 Morphine 2 Mg/Ml Vial SLOW IVP 2 mg Q4H PRN Administration Pain Oxycodone HCl 5 mg 04/15/20 20:20 04/16/20 04:22 Oxycodone 5 Mg Tab PO 5 mg Q6H PRN Administration Pain Pantoprazole Sodium 40 mg 04/15/20 09:00 04/15/20 20:35 Pantoprazole 40 Mg Vial IVP 40 mg Q12HR FLYNN Administration Sertraline HCl 50 mg 04/15/20 21:00 04/15/20 20:35 Sertraline Hcl 100 Mg Tab PO 50 mg HS FLYNN Administration Sodium Chloride 10 ml 04/15/20 02:56 04/15/20 06:24 Flush - Normal Saline 10 Ml Syringe IVF 10 ml PRN PRN Administration Saline Flush - Exam General Appearance: awake alert Eye: scleral icterus ENT: normocephalic atraumatic, moist mucosa Neck: supple, no JVD Heart: RRR Respiratory: normal chest expansion Respiratory - other findings: BS decreased at bases Gastrointestinal: distended, diminished bowl sounds Skin: normal turgor Neurological: no focal deficits Musculoskeletal: generalized weakness Psychiatric: oriented to person, oriented to place Hosp A/P (1) Abdominal pain Code(s): R10.9 - UNSPECIFIED ABDOMINAL PAIN Status: Acute Qualifiers: Abdominal location: epigastric Qualified Code(s): R10.13 - Epigastric pain (2) Hyperbilirubinemia Code(s): E80.6 - OTHER DISORDERS OF BILIRUBIN METABOLISM Status: Acute (3) Obstructive jaundice due to cancer Code(s): K83.1 - OBSTRUCTION OF BILE DUCT; C80.1 - MALIGNANT (PRIMARY) NEOPLASM, UNSPECIFIED Status: Acute (4) SOB (shortness of breath) on exertion Code(s): R06.02 - SHORTNESS OF BREATH Status: Acute (5) Constipation Code(s): K59.00 - CONSTIPATION, UNSPECIFIED Status: Chronic (6) Hypothyroidism Code(s): E03.9 - HYPOTHYROIDISM, UNSPECIFIED Status: Chronic - Plan Dr Stock has been consulted and is on the case. He has ordered another dose of lactulose today. Liver enzymes and ammonia has increased. Will continue to monitor Changed pain medicine to Fentanyl 25mcg topical Q3D to see if this helps with pain. She is vomiting up the PO medication. Phenergan is helping with nausea but makes patient more somnolent and confused. Will add Boost TID as patient tolerates. Added palliative care consult - family is requesting a family conference Case Management has been consulted for assistance with HH, durable medical equipment. Will recheck lab in the AM Repeat CXR yesterday was inconclusive for pneumonia, recommends follow up xray. Patient is not having increased work of breathing. Abdomen is distended which is likely the cause of SOB with exertion. WBC has improved today. Will discuss plan with Dr. No, attending for today.
[2020-04-16] MEDS: Pantoprazole 40 MG VIAL IVP SCH ×2 (10:27→21:38)
[2020-04-16] MEDS: Morphine ER 15 MG TAB PO SCH (10:41)
[2020-04-16] MEDS: Levothyroxine 150 MCG TAB PO SCH (10:58)
[2020-04-16] MEDS: Lisinopril 10 MG TAB PO SCH (10:58)
[2020-04-16] MEDS: ALPRAZolam 0.25 MG TAB PO PRN (15:37)
[2020-04-16] MEDS: Dextrose 5 % And 0.9 % NaCl 1,000 ML IV SCH (15:37)
[2020-04-16] MEDS ORDERED: Phytonadione 10 MG/ML AMP SC SCH (16:30)
--- NOTE | 2020-04-16 17:29 | PRG ---
DATE OF SERVICE: 04/16/2020 SUBJECTIVE: Ms. Long is still mildly confused, but oriented x3 at least. She still has had no significant stool output despite multiple doses of lactulose and lactulose enema yesterday. OBJECTIVE: VITAL SIGNS: Temperature is 98.2, pulse 88, blood pressure 178/85. GENERAL: She is in no acute distress, jaundiced. LUNGS: Clear to auscultation bilaterally. HEART: Regular rate and rhythm without murmur. ABDOMEN: Soft. Mild tenderness in the left abdomen without guarding. Bowel sounds are present. EXTREMITIES: No lower extremity edema. IMPRESSION: 1. Encephalopathy. She has mild confusion, but currently is now oriented x3. Her ammonia was a bit elevated and given her elevated INR, she likely has some underlying chronic liver disease. Her INR could still just be elevated due to the biliary obstruction and lack of vitamin K. Has lack of vitamin K absorption due to the biliary obstruction. Still she does have asterixis, so I am treating her constipation with lactulose. 2. Constipation. She has had no bowel movement for the last couple of days, has been on opioids and Zofran. We will continue the lactulose, but given the lack of response, I will add Relistor today to counteract the opioid induced constipation. 3. Biliary obstruction. She had a metal stent placed to her bile duct obstruction secondary to malignant stricture in the pancreas head. Her bilirubin dropped today from 13.6 to 8.6 after placement of the stent. 4. Hematemesis. Her granddaughter reports that she threw up some blood the day after her stent placement. She could have had some mild bleeding from her sphincterotomy site. Her hemoglobin has a slight decrease. Overall, she does not appear to have overt bleeding now. I will give her a dose of vitamin K. 5. Metastatic carcinoma, suspected GI primary now with bile duct brushings of the common bile duct at the level of pancreatic head positive for carcinoma as well. Treatment options are limited. She has been considering clinical trial. For now, her bile duct at least has stent, but I think that she and her granddaughter leaning towards hospice care. Her overall care is managed by Dr. Azul. RECOMMENDATIONS: 1. We will give a dose of vitamin K. 2. Continue lactulose as scheduled. 3. Add Relistor. Job ID: [id number]
[2020-04-16] MEDS: Morphine 2 MG/ML VIAL SLOW IVP PRN (21:46)
[2020-04-17] MEDS: Morphine 2 MG/ML VIAL SLOW IVP PRN ×5 (03:22→22:06)
[2020-04-17] MEDS: cefTRIAXone\\ROCEPHIN 1 GM in Sodium Chloride 0.9% 100 ML IVPB SCH (03:23)
[2020-04-17 04:13] LABS: ALT (SGPT) 368 U/L (8-55); AST (SGOT) 473 U/L (5-34); Albumin 2.9 g/dL (3.4-4.8); Alkaline Phosphatase 1882 U/L (40-110); Anion Gap 14 mmol/L (10-20); BUN (Urea Nitrogen) 13 mg/dL (9.8-20.1); Calc. Creatinine Clearance 82 mL/min (70-130); Calcium 8.1 mg/dL (7.8-10.44); Carbon Dioxide 20 mmol/L (23-31); Chloride 106 mmol/L (98-107); Estimated GFR-MDRD Greater than 90; Globulin 2.9 g/dL (2.4-3.5); Glucose 112 mg/dL (83-110); Protein, Total 5.8 g/dL (6.0-8.3); Sodium 137 mmol/L (136-145)
[2020-04-17 04:17] LABS: Potassium 2.9 mmol/L (3.5-5.1)
[2020-04-17 04:19] LABS: #Eosinphils 0.1 thou/uL (0.0-0.7); #Lymphocytes 0.7 thou/uL (1.20-3.40); #Monocytes 0.8 thou/uL (0.11-0.59); %Basophils 0.1 % (0.0-1.0); %Eosinophils 0.6 % (0.0-10.0); %Lymphocytes 5.5 % (21.0-51.0); %Monocytes 6.5 % (0.0-10.0); %Neutrophils 87.3 % (42.0-75.0); Anisocytosis SLIGHT = 6-15 cells (100X) (0-5/hpf); Hemoglobin 10.7 g/dL (12.0-16.0); MDiff Complete? YES; Mean Corpuscular HGB CONC 33.4 g/dL (32.0-36.0); Mean Corpuscular Hemoglobin 31.9 pg (27.0-31.0); Mean Corpuscular Volume 95.5 fL (78.0-98.0); Mean Platelet Volume 7.4 fL (7.4-10.4); Platelet Count 256 thou/uL (130-400); RBC Distribution Width 19.6 % (11.5-14.5); Red Blood Cell (RBC) Count 3.35 mill/uL (4.20-5.40); Stomatocytes SLIGHT = 2-5 cells (100X) (0-1/hpf); White Blood Cell (WBC) Count 12.6 thou/uL (4.8-10.8)
[2020-04-17] MEDS ORDERED: Electrolyte Replacement Protoc 1 EACH EACH FS SCH (04:30)
[2020-04-17] MEDS ORDERED: Potassium Chloride 20 MEQ in Premix Bag 1 BAG IVPB SCH (04:30)
[2020-04-17] MEDS ORDERED: Potassium Chloride 40 MEQ in Premix Bag 1 BAG IVPB SCH (04:30)
[2020-04-17] MEDS ORDERED: Electrolyte Replacement Protoc 1 EACH EACH FS PRN (04:30)
[2020-04-17] MEDS: oxyCODONE 5 MG TAB PO PRN ×2 (06:06→21:17)
[2020-04-17] MEDS: Levothyroxine 150 MCG TAB PO SCH (06:06)
[2020-04-17] MEDS: metroNIDAZOLE 500 MG in Premix Bag 1 BAG IVPB SCH ×3 (06:07→21:22)
[2020-04-17] MEDS: ALPRAZolam 0.25 MG TAB PO PRN ×2 (06:14→21:17)
[2020-04-17] MEDS: Potassium Chloride 20 MEQ in Premix Bag 1 BAG IVPB SCH ×3 (06:15→11:46)
[2020-04-17] MEDS: Dextrose 5 % And 0.9 % NaCl 1,000 ML IV SCH (06:56)
[2020-04-17 07:45] LABS: Phosphorus 2.3 mg/dL (2.3-4.7)
[2020-04-17] MEDS ORDERED: Magnesium 2 GM/50 ML 2 GM in Premix Bag 1 BAG IVPB SCH (08:15)
[2020-04-17] MEDS: Lisinopril 10 MG TAB PO SCH (08:25)
[2020-04-17] MEDS: Pantoprazole 40 MG VIAL IVP SCH (08:26)
[2020-04-17] MEDS: NS 0.9% w/ 40 MEQ KCL 1,000 ML IV SCH (08:57)
--- NOTE | 2020-04-17 10:37 | PDOC.FMACP ---
Advance Care Planning - Problem (1) Hematemesis Status: Acute Code(s): K92.0 - HEMATEMESIS (2) Palliative care encounter Status: Acute Code(s): Z51.5 - ENCOUNTER FOR PALLIATIVE CARE (3) Obstructive jaundice due to cancer Status: Acute Code(s): K83.1 - OBSTRUCTION OF BILE DUCT; C80.1 - MALIGNANT (PRIMARY) NEOPLASM, UNSPECIFIED (4) Constipation Status: Chronic Code(s): K59.00 - CONSTIPATION, UNSPECIFIED (5) Metastatic adenocarcinoma Status: Chronic Code(s): C79.9 - SECONDARY MALIGNANT NEOPLASM OF UNSPECIFIED SITE - Note Participants: family, surrogate decision-maker, palliative care Summary: Palliative care addressed Advanced Care Planning, opportunity to decline. The diagnosis, prognosis and goals of care were discussed. Appropriate forms and documentation to accomplish the goals of care were discussed. All questions were answered. The and granddaughter have elected to transition to hospice and return with Mrs Pickens to the home setting. After lengthy conversation the desires to pursue comfort measures in the home setting, seeking quality of life. Reviewed services provided by hospice, answered questions. Completed DNAR, and Hannah Elena registrar prepared the OOHDNAR for Dr Melani larios. with states she has sent the referral to [facility] for evaluation. The granddaughter states they are preparing a room in her home for her grandmother, her grandparents live on the property. Mr Pickens states if he is not here his granddaughter Penny can be surrogate decision maker if Mrs Pickens is not able. Emotional support and Therapeutic listening. Mr and Mrs Pickens just celebrated 62 years of marriage. Time Spent (mins): 60
--- NOTE | 2020-04-17 10:59 | PRG ---
DATE OF SERVICE: 04/17/2020 SUBJECTIVE: Mercedes had a couple of bowel movements last night. OBJECTIVE: VITAL SIGNS: Temperature 98.5, pulse 84, blood pressure 171/71. GENERAL: Still groggy and sleepy, but arousable. LUNGS: Clear to auscultation bilaterally. HEART: Regular rate and rhythm without murmur. ABDOMEN: Distended and mildly tender. Bowel sounds are present. EXTREMITIES: No lower extremity edema. IMPRESSION: 1. Carcinomatosis and malignant biliary stricture at the pancreatic head with brushings positive from the bile duct for carcinoma. Status post metal stent placement. Her bilirubin and alkaline phosphatase are trending down. 2. Encephalopathy. 3. Constipation. She is on opioids and she was started on Movantik last night. Relistor subcutaneously apparently is not formulary. She has been on significant amount of lactulose, which is now causing abdominal distention. Recommendations: 1. a. We can back off the lactulose at this point and continue Movantik and transition over to MiraLAX instead in light of the abdominal distention. b. Her family is discussing transition to hospice care with palliative care team today. She is following with Oncology as well. RECOMMENDATIONS: 1. Continue Movantik and schedule osmotic laxatives. 2. I will sign off. Please call if GI can be of assistance. Job ID: [id number]
--- NOTE | 2020-04-17 16:25 | PDOC.HOSPP ---
- Subjective Encounter Date: 04/17/20 Encounter Time: 10:00 Subjective: Patient seen and examined for obstructive jaundice. Feels generally weak and fatigue. Mentation slowly improving poor appetite. 2 small bowel movements earlier. - Objective Vital Signs & Weight: Vital Signs (12 hours) Temp Pulse Resp BP BP Pulse Ox 04/17/20 11:57 90 16 94 L 04/17/20 08:25 171/71 H 04/17/20 08:00 95 04/17/20 07:39 98.5 F 84 16 171/71 H 95 Weight Admit Weight 119 lb 9 oz Weight 119 lb 9 oz I&O: 04/16/20 04/17/20 04/18/20 06:59 06:59 06:59 Intake Total 1395 3590 Output Total 210 Balance 1185 3590 Result Diagrams: 04/17/20 03:30 04/17/20 03:30 Additional Labs: Abnormal Lab Results - Last 48 hrs 04/16/20 04:20: Sodium 134 L, Carbon Dioxide 19 L, BUN 22 H, Creatinine 0.52 L, Total Bilirubin 8.6 H, AST 651 H, ALT 446 H, Alkaline Phosphatase 2078 H, Serum Total Protein 5.8 L, Albumin 2.8 L, Albumin/Globulin Ratio 0.9 L 04/16/20 04:20: WBC 11.3 H, RBC 3.43 L, Hgb 11.1 L, Hct 32.7 L, MCH 32.2 H, RDW 19.4 H, Neutrophils % 85.5 H, Lymphocytes % 6.9 L, Neutrophils # 9.7 H, Lymphocytes # 0.8 L, Monocytes # 0.8 H, Anisocytosis MODERATE=16-30 cells H 04/16/20 04:20: Ammonia 87 H 04/17/20 03:30: Potassium 2.9 L*, Carbon Dioxide 20 L, Creatinine 0.49 L, Total Bilirubin 7.0 H, AST 473 H, ALT 368 H, Alkaline Phosphatase 1882 H, Serum Total Protein 5.8 L, Albumin 2.9 L, Albumin/Globulin Ratio 1.0 L 04/17/20 03:30: WBC 12.6 H, RBC 3.35 L, Hgb 10.7 L, Hct 32.0 L, MCH 31.9 H, RDW 19.6 H, Neutrophils % 87.3 H, Lymphocytes % 5.5 L, Neutrophils # 11.0 H, Lymphocytes # 0.7 L, Monocytes # 0.8 H Microbiology - Entire Visit 04/15/20 00:08 Gastric - Pending Gastric Occult Blood - Final Radiology Reviewed by me: Yes (CT abdomenreviewed) Hospitalist ROS - Review of Systems Constitutional: reports: weakness, malaise. denies: fever, chills, sweats, o ther Respiratory: denies: cough, dry, shortness of breath, hemoptysis, SOB with excertion, pleuritic pain, sputum, wheezing, other Cardiovascular: denies: chest pain, palpitations, orthopnea, paroxysmal noc. dyspnea, edema, light headedness, other - Medication Medications: Active Medications Generic Name Dose Route Start Last Admin Trade Name Freq PRN Reason Stop Dose Admin Alprazolam 0.25 mg 04/15/20 20:16 04/17/20 06:14 Alprazolam 0.25 Mg Tab PO 0.25 mg BIDPRN PRN Administration Anxiety Fentanyl 25 mcg 04/16/20 10:00 04/16/20 10:30 Fentanyl 25 Mcg/Hour Patch TD 25 mcg Q3D FLYNN Administration Metronidazole 500 mg/ Device 100 mls @ 100 mls/hr 04/15/20 06:00 04/17/20 14:35 IVPB 100 mls Q8HR FLYNN Administration Ondansetron HCl 4 mg/ Sodium 52 mls @ 200 mls/hr 04/15/20 06:03 04/15/20 22:48 Chloride IVPB 52 mls Q6H PRN Administration Nausea Promethazine HCl 25 mg/ Sodium 51 mls @ 102 mls/hr 04/15/20 20:17 04/16/20 00:53 Chloride IVPB 51 mls Q6H PRN Administration Nausea Potassium Chloride/Sodium Chloride 1,000 mls @ 75 mls/hr 04/17/20 07:30 04/17/20 08:57 Ns 0.9% W/ 40 Meq Kcl IV 1,000 mls .[id number] FLYNN Administration Levothyroxine Sodium 150 mcg 04/16/20 06:00 04/17/20 06:06 Levothyroxine 150 Mcg Tab PO 150 mcg 0600 FLYNN Administration Lisinopril 10 mg 04/16/20 09:00 04/17/20 08:25 Lisinopril 10 Mg Tab PO 10 mg DAILY FLYNN Administration Morphine Sulfate 2 mg 04/15/20 06:02 04/17/20 14:41 Morphine 2 Mg/Ml Vial SLOW IVP 2 mg Q4H PRN Administration Pain Oxycodone HCl 5 mg 04/15/20 20:20 04/17/20 06:06 Oxycodone 5 Mg Tab PO 5 mg Q6H PRN Administration Pain Pantoprazole Sodium 40 mg 04/15/20 09:00 04/17/20 08:26 Pantoprazole 40 Mg Vial IVP 40 mg Q12HR FLYNN Administration Sertraline HCl 50 mg 04/15/20 21:00 04/16/20 21:39 Sertraline Hcl 100 Mg Tab PO 50 mg HS FLYNN Administration Sodium Chloride 10 ml 04/15/20 02:56 04/15/20 06:24 Flush - Normal Saline 10 Ml Syringe IVF 10 ml PRN PRN Administration Saline Flush - Exam General Appearance: ill appearing Heart: RRR, no gallops Respiratory: no wheezes, no rales Gastrointestinal: soft, no guarding, no rigidity, distended Extremities: no cyanosis, no clubbing Neurological: no new deficit Psychiatric: somnolent Hosp A/P - Plan DVT proph w/SCDs Generalized weakness/toxic metabolic encephalopathyPOA Hypokalemia/hyponatremia Constipation due to opioids Obstructive jaundice status post recent biliary stent placement Metastatic adenocarcinoma Coagulopathy due to liver metastasis Abnormal LFTs due to obstructive jaundice Hypothyroidism Physical deconditioning Moderate protein calorie malnutrition Plan: LFTs improving. Replace potassium. Change antibiotics to p.o. Replace electrolytes. Change PPIs to p.o. Lactulose dose reduced to 20 g daily. C ontinue Movantik. Continue levothyroxine. Recheck labs in a.m. DNR verified. Consult case therapist for home hospice set up. CMP in a.m. Plan discussed with the family at the bedside. Plan discussed with the palliative care team.
--- NOTE | 2020-04-17 17:02 | PDOC.PALFU ---
Palliative Care Follow-up Note Palliative Care will sign off. Goal of care established, family and patient desiring to transition to the home setting with hospice care. OOHDNAR complete, HBV evaluated and will be delivering equipment tonight to family home with transition to home setting 04/18/2020.
--- NOTE | 2020-04-17 20:11 | CON ---
DATE OF CONSULTATION: REASON FOR CONSULT: Peritoneal carcinomatosis. HISTORY OF PRESENT ILLNESS: Ms. Long was diagnosed with peritoneal carcinomatosis, likely GI tract primary in January of 2019. She underwent treatment with chemotherapy and went into a partial remission. She once again progressed on in December and was on FOLFOX. She continued to progress and was changed to FOLFIRI with Avastin. She is comanaged by [facility]. In March, she had worsening disease on CT scan with increasing bilirubin. She was seen by [facility], but they would not see her until her bilirubin improved. She saw Dr. Stock and had a stent placed. Her bilirubin improved from 13.6 to 7. She unfortunately has had progressive altered mental status. She is no longer taking oral intake. There also is a question of pneumonia and she has been started on antibiotics. She was last seen by Dr. Azul on April 04 and hospice was recommended with focusing on quality of life. Patient was reluctant to give up. Over the last several days, she has become increasingly poorly responsive and no longer taking p.o. She was seen at bedside with her and granddaughter present. She remains confused and essentially somnolent, but will awake to stimulation. PAST MEDICAL HISTORY: 1. Peritoneal carcinomatosis with liver mets. 2. Obstructive jaundice. 3. Malignant pleural effusion, status post PleurX cath. 4. Hypothyroidism. 5. High cholesterol. PAST SURGICAL HISTORY: 1. Hysterectomy. 2. Multiple ERCPs with stent placement. 3. History of PleurX catheter placement and removal. ALLERGIES: SULFA. CURRENT MEDICATIONS: 1. Xanax. 2. Ceftriaxone. 3. Duragesic. 4. Lactulose. 5. Synthroid. 6. Zestril. 7. Flagyl. 8. . 9. Morphine. 10. Zofran. 11. Oxycodone. 12. Protonix. 13. MiraLAX. 14. Phenergan. FAMILY HISTORY: First cousin had ovarian cancer. SOCIAL HISTORY: , has 3 children, lives with her spouse. No alcohol, tobacco, or illicit drug use. REVIEW OF SYSTEMS: Unable to obtain secondary to decreased mental status. PHYSICAL EXAMINATION: VITAL SIGNS: Temperature 98.5, pulse is 90, respiratory rate 16, BP is 171/71, and she is 94% on 2.5 L. GENERAL: This is an ill-appearing female, in no acute distress. HEENT: Normocephalic and atraumatic. She has scleral icterus. NECK: Supple. CV: Regular rate and rhythm. LUNGS: Clear anterior. ABDOMEN: Soft with bowel sounds are positive. SKIN: She is jaundiced. NEUROLOGIC: Nonfocal. PERTINENT LABORATORY DATA AND X-RAYS: Current WBCs are 12.6, hemoglobin 10.7, hematocrit 32, and platelet count is 256,000. She has 87% neutrophils, 5% lymphocytes. PT is 22.2 and INR is 1.9. Sodium 137, potassium 2.9, chloride is 106, CO2 is 20, BUN is 13, creatinine 0.49, calcium 8.1, bilirubin 7, AST is 473, ALT is 368, and alk phos is 1882. Ammonia is 87. Troponin is negative. Serum total protein 5.8, albumin 2.9, and globulin 2.9. ASSESSMENT: 1. Metastatic colon cancer. 2. Obstructive jaundice, status post stent. 3. Altered mental status secondary to above. DISCUSSION: Case has been discussed with Dr. Azul. Patient is a hospice candidate as she is unlikely to have any meaningful recovery. The goal was to get her to [facility] to see if she is a candidate for clinical trial. However, they would not take her given her elevated bilirubin. I do not think that she will be a candidate as she dramatically declined. She is somnolent and has had only minimal oral intake in the last several days. She is likely at the end of life. [facility] is meeting with the patient this afternoon. They plan to take her home with hospice. We will assist in any way we can. Thank you for the consult. Job ID: [id number] [facility]
[2020-04-18] MEDS: Morphine 2 MG/ML VIAL SLOW IVP PRN ×2 (02:04→09:10)
[2020-04-18] MEDS: NS 0.9% w/ 40 MEQ KCL 1,000 ML IV SCH ×2 (02:50→09:11)
[2020-04-18 04:29] LABS: ALT (SGPT) 254 U/L (8-55); AST (SGOT) 247 U/L (5-34); Albumin 2.8 g/dL (3.4-4.8); Alkaline Phosphatase 1663 U/L (40-110); Anion Gap 13 mmol/L (10-20); BUN (Urea Nitrogen) 10 mg/dL (9.8-20.1); Bilirubin, Total 5.8 mg/dL (0.2-1.2); Calc. Creatinine Clearance 92 mL/min (70-130); Carbon Dioxide 19 mmol/L (23-31); Chloride 105 mmol/L (98-107); Estimated GFR-MDRD Greater than 90; Globulin 2.8 g/dL (2.4-3.5); Glucose 93 mg/dL (83-110); Potassium 3.7 mmol/L (3.5-5.1); Protein, Total 5.6 g/dL (6.0-8.3); Sodium 133 mmol/L (136-145)
[2020-04-18] MEDS: metroNIDAZOLE 500 MG in Premix Bag 1 BAG IVPB SCH (05:44)
[2020-04-18] MEDS: Levothyroxine 150 MCG TAB PO SCH (05:44)
[2020-04-18] MEDS: oxyCODONE 5 MG TAB PO PRN (06:52)
[2020-04-18] MEDS ORDERED: Polyethylene Glycol 3350 17 GM Packet PO SCH (09:00)
[2020-04-18 09:06] VITALS: TEMP 97.7
[2020-04-18] MEDS: Lisinopril 10 MG TAB PO SCH (09:10)
[2020-04-18 09:11] VITALS: BP 171/71
--- NOTE | 2020-04-18 18:36 | PDOC.DS.DS ---
Provider - Provider Date of Admission: 04/15/20 02:48 Date of Discharge: 04/18/20 Admitting Provider: Ricardo Lemus MD Primary Care Physician: NEGRA Torres Course - Hospital Course Hospital Course: Patient is a 79-year-old female with metastatic colon cancer with recent ERCP with stent placement on 04/13/2020 presented to the emergency room on 04/15 with altered mentation along with bloody emesis. She was admitted with a diagnosis of suspected GI bleeding and was started on IV PPIs. Patient was evaluated by gastroenterology. CT scan of the abdomen showed irregular nodules at each lung base. Her LFTs gradually improved. She was found to have opioid-induced constipation that improved with laxatives and Movantik. She was also evaluated by oncology service. Family decided on transitioning to home hospice. Final diagnosis: Generalized weakness with toxic metabolic encephalopathy Hypokalemia Hyponatremia Opioid-induced constipation Obstructive jaundice status post recent biliary stent placement Metastatic adenocarcinoma Coagulopathy due to liver metastasis s/p vitamin K Abnormal LFTs due to obstructive jaundice Hypothyroidism Moderate protein calorie malnutrition Physical deconditioning DO NOT RESUSCITATE Hematemesis on admissionresolved Acute blood loss anemia Chronic pain syndrome Resuscitation Status: 04/17/20 10:26 Resuscitation Status Routine Co-Sign Provider: Resuscitation Status: DNAR: NO Resuscitation Discussed with: Additional comments: Both patient and granddaughter voice that the patietn would not desire to have aggressive measures to sustain life, requested a DNAR. Also completed an OOHDNAR - Labs Lab Results: 04/17/20 03:30 04/18/20 03:35 Abnormal Lab Results - Last 48 hrs 04/17/20 03:30: Potassium 2.9 L*, Carbon Dioxide 20 L, Creatinine 0.49 L, Total Bilirubin 7.0 H, AST 473 H, ALT 368 H, Alkaline Phosphatase 1882 H, Serum Total Protein 5.8 L, Albumin 2.9 L, Albumin/Globulin Ratio 1.0 L 04/17/20 03:30: WBC 12.6 H, RBC 3.35 L, Hgb 10.7 L, Hct 32.0 L, MCH 31.9 H, RDW 19.6 H, Neutrophils % 87.3 H, Lymphocytes % 5.5 L, Neutrophils # 11.0 H, Lymphocytes # 0.7 L, Monocytes # 0.8 H 04/18/20 03:35: Sodium 133 L, Carbon Dioxide 19 L, Creatinine 0.44 L, Total Bilirubin 5.8 H, AST 247 H, ALT 254 H, Alkaline Phosphatase 1663 H, Serum Total Protein 5.6 L, Albumin 2.8 L, Albumin/Globulin Ratio 1.0 L Microbiology - Entire Visit 04/15/20 00:08 Gastric - Pending Gastric Occult Blood - Final - Physical Exam Vitals: Vital Signs (12 hours) Temp Pulse Resp BP BP Pulse Ox 04/18/20 09:10 171/71 H 04/18/20 09:05 97.7 F 102 H 20 197/98 H 97 Weight Admit Weight 119 lb 9 oz Weight 119 lb 9 oz Physical Exam: The patient was seen and examined on the day of discharge. Plan - Discharge Medications Prescriptions: cloNIDine [Catapres] 0.1 mg PO BID PRN #20 tab PRN Reason: Sbp Greater Than 180 Home Medications: Medication Instructions Recorded Confirmed Type Levothyroxine Sodium 150 mcg PO DAILY 02/11/19 04/15/20 History Sertraline HCl 50 mg PO HS 05/06/19 04/15/20 History Morphine Sulfate [Morphine Sulfate 15 mg PO BID 04/12/20 04/15/20 History ER] Ondansetron [Zofran ODT] 8 mg PO TID PRN 04/12/20 04/15/20 History OxyCODONE IR [oxyCODONE HCl] 5 mg PO Q6HR PRN 04/12/20 04/15/20 History Potassium Chloride [K-Dur] 20 meq PO DAILY 04/12/20 04/15/20 History ALPRAZolam 0.25 mg PO BID PRN 04/15/20 04/15/20 History Lisinopril [Zestril] 10 mg PO DAILY 04/15/20 04/15/20 History Lactulose 20 gm PO DAILY udcup 04/18/20 Rx Pantoprazole [Protonix] 40 mg PO DAILY tab 04/18/20 Rx Polyethylene Glycol 3350 [Miralax] 17 gm PO DAILY pk 04/18/20 Rx cloNIDine [Catapres] 0.1 mg PO BID PRN #20 tab 04/18/20 Rx fentaNYL [Duragesic] 25 mcg TD Q3D patch 04/18/20 Rx Allergies: Sulfa (Sulfonamide Antibiotics) Allergy (Verified 04/15/20 04:52) Hives - Discharge Instructions Discharge Instructions:: [facility]osp[facility] will help with pain management. Notify nurse if pain/anxiety are not well controlled. Fentanyl patch is due to be changed on 04/19 am. - Follow up Plan Referrals: Kalli Castaneda FNP [Primary Care Provider] - Disposition: HOSPICE-HOME
== END 2020-04-18 11:45 | disposition hospice, home (50) | DRG 374 ==
LOC: ERS 21:42 → ONC 04-15 02:48
PROVIDERS: ADMIT Internal Medicine; ATTEND Internal Medicine
DX: C78.89 Secondary malignant neoplasm of other digestive organs (principal); K83.1 Obstruction of bile duct; G92 Toxic encephalopathy; E87.1 Hypo-osmolality and hyponatremia; D68.4 Acquired coagulation factor deficiency; E44.0 Moderate protein-calorie malnutrition; D62 Acute posthemorrhagic anemia; K92.0 Hematemesis; C18.9 Malignant neoplasm of colon, unspecified; C78.00 Secondary malignant neoplasm of unspecified lung; C78.7 Secondary malignant neoplasm of liver and intrahepatic bile duct; K59.03 Drug induced constipation; Z20.828 Contact with and (suspected) exposure to other viral communicable diseases; Z66 Do not resuscitate; Z51.5 Encounter for palliative care; T40.2X5A Adverse effect of other opioids, initial encounter; E87.6 Hypokalemia; E03.9 Hypothyroidism, unspecified; E78.00 Pure hypercholesterolemia, unspecified; G89.4 Chronic pain syndrome; Z88.2 Allergy status to sulfonamides; Z79.890 Hormone replacement therapy; Z79.899 Other long term (current) drug therapy; Z90.710 Acquired absence of both cervix and uterus; Z68.23 Body mass index [BMI] 23.0-23.9, adult
CPT/HCPCS: 36415; 36416; 70450; 71045; 74019; 74176; 80053; 82140; 82271; 82550; 83690; 83735; 84100; 84484; 85025; 85610; 93005; 94760; C9113; J0692; J0696; J1642; J1956; J2270; J2405; J2550; J3370; J3430; J3475; J3480; J3490